=== PATIENT | female | born 1980 | race African-American/Black ===

== ENCOUNTER 2016-02-26 17:01 | Emergency (ER) | payer MEDICAID, OTHER ==
[~2016-02-26] VITALS: Ht 165.1 cm; Wt 100.0 kg
[~2016-02-26 17:01] MED LIST: ASPI81TA82 PO; ATOR20TA42 PO; CLOP75 PO; DOCU1CAP39 PO; GABA600T PO; METO25 PO; MIRTA15 PO; NIFE1TAB85 PO
[2016-02-26 17:03] VITALS: BP 183/115; PULSE 100; RESP 12; TEMP 98; O2SAT 99
[2016-06-10] MEDS ORDERED: ATOR20TA15 PO (06:38)
[2016-06-10] MEDS ORDERED: METO25TA3 PO (06:38)
[2016-06-10] MEDS ORDERED: NIFE20 PO (06:38)
[2016-06-10] MEDS ORDERED: PLAV75TA29 PO (06:38)
[2016-06-10] MEDS ORDERED: COLA100C3 PO (06:38)
[2016-06-10] MEDS ORDERED: GABA600T PO (06:38)
[2016-06-10] MEDS ORDERED: ASPI81TA81 PO (06:38)
[2016-06-10] MEDS ORDERED: PERC10TA27 PO (07:19)
[2016-06-10] MEDS ORDERED: MIRTA15 PO (07:19)
[2016-07-14] MEDS ORDERED: HYDR-3288 PO (11:57)
== END 2016-02-26 22:22 | disposition left against medical advice (07) ==
LOC: NED 17:01
DX: R51 Headache (principal)
CPT/HCPCS: 99281

== ENCOUNTER 2016-02-27 07:47 | Emergency (ER) | payer MEDICAID ==
[~2016-02-27] VITALS: Ht 165.1 cm; Wt 95.5 kg
[2016-02-27 07:49] VITALS: BP 147/90; PULSE 92; RESP 18; TEMP 98.4; O2SAT 99
[2016-06-10] MEDS ORDERED: GABA600T PO (06:38)
[2016-06-10] MEDS ORDERED: NIFE20 PO (06:38)
[2016-06-10] MEDS ORDERED: ATOR20TA15 PO (06:38)
[2016-06-10] MEDS ORDERED: METO25TA3 PO (06:38)
[2016-06-10] MEDS ORDERED: PLAV75TA29 PO (06:38)
[2016-06-10] MEDS ORDERED: ASPI81TA81 PO (06:38)
[2016-06-10] MEDS ORDERED: COLA100C3 PO (06:38)
[2016-06-10] MEDS ORDERED: PERC10TA27 PO (07:19)
[2016-06-10] MEDS ORDERED: MIRTA15 PO (07:19)
[2016-07-14] MEDS ORDERED: HYDR-3288 PO (11:57)
== END 2016-02-27 09:00 | disposition left against medical advice (07) ==
LOC: NED 07:47
DX: R51 Headache (principal)
CPT/HCPCS: 99281

== ENCOUNTER 2016-04-01 15:21 | Emergency (ER) | payer SELFPAY ==
[~2016-04-01] VITALS: Ht 165.1 cm; Wt 100.0 kg
[2016-04-01 15:24] VITALS: BP 162/85; PULSE 83; RESP 14; TEMP 98.4; O2SAT 100
[2016-06-10] MEDS ORDERED: ATOR20TA15 PO (06:38)
[2016-06-10] MEDS ORDERED: PLAV75TA29 PO (06:38)
[2016-06-10] MEDS ORDERED: COLA100C3 PO (06:38)
[2016-06-10] MEDS ORDERED: METO25TA3 PO (06:38)
[2016-06-10] MEDS ORDERED: NIFE20 PO (06:38)
[2016-06-10] MEDS ORDERED: ASPI81TA81 PO (06:38)
[2016-06-10] MEDS ORDERED: GABA600T PO (06:38)
[2016-06-10] MEDS ORDERED: MIRTA15 PO (07:19)
[2016-06-10] MEDS ORDERED: PERC10TA27 PO (07:19)
[2016-07-14] MEDS ORDERED: HYDR-3288 PO (11:57)
== END 2016-04-01 16:57 | disposition left against medical advice (07) ==
LOC: NETRI 15:21
DX: R60.9 Edema, unspecified (principal)
CPT/HCPCS: 99281

== ENCOUNTER 2016-05-13 07:49 | Emergency (ER) | payer OTHER ==
[~2016-05-13] VITALS: Ht 165.1 cm; Wt 100.0 kg
[2016-05-13 07:52] VITALS: BP 153/89; PULSE 76; RESP 15; TEMP 98.1; O2SAT 98
--- NOTE | 2016-05-13 11:17 | PD ---
HPI Chief Complaint: Pain: Acute or Chronic Time Seen by Provider: 09:17 Travel History International Travel<30 days: No Contact w/Intl Traveler<30days: No Traveled to known affect area: No History of Present Illness HPI The patient was seen and examined in the presence of the nurse. This patient has known peripheral vascular disease. She has chronic bilateral leg pain. She says that her right leg is hurting worse for the last couple of days. There is no injury. She was supposed to follow up with vascular surgeon Dr. Sampson as an outpatient but she never followed up. He describes a rather diffuse leg pain. Severity is moderate. Chronic pain but the duration of the worsening 2 days. No alleviating factors. PFSH Past Medical History Hx Anticoagulant Therapy: Yes Arthritis: No Asthma: No Autoimmune Disease: No Anxiety: Yes Depression: No Heart Rhythm Problems: No Cancer: No Cardiovascular Problems: Yes (STENTS) High Cholesterol: No Chemotherapy: No Chest Pain: Yes (Chest pain due to anxiety ) Congestive Heart Failure: No COPD: No Cerebrovascular Accident: No Diabetes: No Diminished Hearing: No Endocrine: No Gastrointestinal Disorders: No GERD: No Genitourinary: No Headaches: No Hiatal Hernia: No Hypertension: Yes Immune Disorder: No Implanted Vascular Access Dvce: Yes Kidney Stones: No Musculoskeletal: No Neurologic: No Psychiatric: No Reproductive: No Respiratory: No Immunizations Current: Yes Migraines: No Radiation Therapy: No Renal Failure: No Seizures: No Sickle Cell Disease: No Sleep Apnea: No Thyroid Disease: No Triglycerides - High: Yes Ulcer: No Tetanus Vaccination: < 5 Years ?: Not : 5 Para: 4 Miscarriage: 1 : 0 Ovarian Cysts: Yes Tubal Ligation: Yes Past Surgical History Abdominal Surgery: Yes AICD: No Arteriovenous Shunt: No Body Medical Devices: Stent to BLE Cardiac Surgery: No Section: Yes (X 4) Ear Surgery: No Endocrine Surgery: No Eye Surgery: No Genitourinary Surgery: No Gynecologic Surgery: Yes (C SECTION X 4) Insulin Pump: No Joint Replacement: No Neurologic Surgery: No Oral Surgery: No Pacemaker: No Thoracic Surgery: No Other Surgery: Yes (STENTS BILAT LEGS) Social History Alcohol Use: No Tobacco Use: No Substance Use: No Allergies-Medications (Allergen,Severity, Reaction): Coded Allergies: No Known Allergies (Unverified , 05/13/16) Reported Meds & Prescriptions Reported Meds & Active Scripts Active Gabapentin 600 Mg Tab 600 Mg PO TID Colace 100 Mg Cap (Docusate Sodium) 100 Mg Cap 100 Mg PO BID Mirtazapine 15 Mg Tab 15 Mg PO HS Metoprolol Tartrate 25 mg (Metoprolol Tartrate) 25 Mg Tab 25 Mg PO Q12HR Plavix (Clopidogrel Bisulfate) 75 Mg Tab 75 Mg PO DAILY Lipitor 20 Mg Tab (Atorvastatin) 20 Mg Tab 20 Mg PO HS Nifedipine Er (Nifedipine) 30 Mg Tabcr 30 Mg PO DAILY Reported Aspir-81 (Aspirin) 81 Mg Tab 81 Mg PO DAILY Review of Systems General / Constitutional: No: Fever Eyes: No: Visual changes HENT: No: Headaches Cardiovascular: No: Chest Pain or Discomfort Respiratory: No: Shortness of Breath Gastrointestinal: No: Abdominal Pain Genitourinary: No: Dysuria Musculoskeletal: Positive: Myalgias, Arthralgias, Pain Skin: No Rash Neurologic: No: Weakness Psychiatric: No: Depression Endocrine: No: Polydipsia Hematologic/Lymphatic: No: Easy Bruising Physical Exam Narrative GENERAL: Well-nourished, well-developed patient with right leg pain. SKIN: Warm and dry. HEAD: Atraumatic. Normocephalic. EYES: Pupils equal and round. No scleral icterus. No injection or drainage. ENT: No nasal bleeding or discharge. Mucous membranes pink and moist. NECK: Trachea midline. No JVD. CARDIOVASCULAR: Regular rate and rhythm. No murmur appreciated. RESPIRATORY: No accessory muscle use. Clear to auscultation. Breath sounds equal bilaterally. GASTROINTESTINAL: Abdomen soft, non-tender, nondistended. Hepatic and splenic margins not palpable. MUSCULOSKELETAL: Has right foot transmetatarsal amputation. No clubbing. No cyanosis. No edema. Feet are symmetric in temperature. No obvious ischemic changes on exam. I expect her to have difficult to palpate pedal pulses. I cannot palpate them. The nurse was able to Doppler a dorsalis pedis pulse however. NEUROLOGICAL: Awake and alert. No obvious cranial nerve deficits. Motor grossly within normal limits. Normal speech. PSYCHIATRIC: Appropriate mood and affect; insight and judgment normal. Data Data Last Documented VS Vital Signs Date Time Temp Pulse Resp B/P Pulse Ox O2 Delivery O2 Flow Rate FiO2 05/13/16 07:52 98.1 76 15 153/89 98 Orders Oxycodone-Acetamin 5-325 Mg (Percocet (05/13/16 11:45) MDM Medical Decision Making Medical Screen Exam Complete: Yes Emergency Medical Condition: Yes Medical Record Reviewed: Yes Differential Diagnosis Arterial ischemia, chronic pain, embolic disease Narrative Course I have reviewed the patient's electronic medical record. Patient had a CTA of the aorta with runoff 4 months ago. I have reviewed that. The disposition of her last visit then was that she might need outpatient surgery but it doesn't seem like she follows up. She says that she lost her insurance and that's why. I reviewed the case with Dr. Sampson who is familiar with this patient.. He is going to come down to the emergency room and talked to and examined the patient and determine a plan of action. He has spoken with and examined the patient. Nothing emergent going on He will see the patient in his office for follow-up Diagnosis Primary Impression: Chronic leg pain Qualified Code: M79.604 - Chronic pain of right lower extremity Additional Impression: Peripheral vascular disease Additional Instructions: The patient was advised to follow up with Dr. Sampson at [id number], call for follow-up appointment Med/Other Pt SpecificInfo: Other Disposition: 01 DISCHARGE HOME Condition: Stable Jono Torrez MD May 13, 2016 11:17
[2016-05-13] MEDS ORDERED: oxyCODONE/ACETAMINOPHEN 5 MG/325 MG TAB PO ONE (11:45)
[2016-05-13] MEDS ORDERED: PERC5TAB12 PO (12:41)
[2016-06-10] MEDS ORDERED: PLAV75TA29 PO (06:38)
[2016-06-10] MEDS ORDERED: ASPI81TA81 PO (06:38)
[2016-06-10] MEDS ORDERED: NIFE20 PO (06:38)
[2016-06-10] MEDS ORDERED: COLA100C3 PO (06:38)
[2016-06-10] MEDS ORDERED: ATOR20TA15 PO (06:38)
[2016-06-10] MEDS ORDERED: GABA600T PO (06:38)
[2016-06-10] MEDS ORDERED: METO25TA3 PO (06:38)
[2016-06-10] MEDS ORDERED: PERC10TA27 PO (07:19)
[2016-06-10] MEDS ORDERED: MIRTA15 PO (07:19)
[2016-07-14] MEDS ORDERED: HYDR-3288 PO (11:57)
== END 2016-05-13 12:56 | disposition home or self-care (01) ==
LOC: NEPC 07:49
DX: M79.604 Pain in right leg (principal); G89.29 Other chronic pain; I73.9 Peripheral vascular disease, unspecified; I10 Essential (primary) hypertension; Z79.01 Long term (current) use of anticoagulants
CPT/HCPCS: 99283

== ENCOUNTER → 2016-06-05 | Outpatient (CLI) | payer OTHER ==
[~2016-06-05] MED LIST changes: +ASPI81TA81 PO; +ATOR20TA15 PO; +COLA100C3 PO; +DOCU100C PO; +HYDR-2376 PO; +HYDR-3288 PO; +HYDR-3366 PO; +METO25TA3 PO; +NIFE20 PO; +OXYC1TAB36 PO; +PERC10TA27 PO; +PERC5TAB12 PO; +PLAV75TA29 PO
[2016-06-05 12:09] LABS: AUTOMATED NEUTROPHIL # 5.9 TH/MM3 (1.8-7.7); BASOPHIL # 0.1 TH/MM3 (0-0.2); BASOPHIL % 0.9 % (0.0-2.0); EOSINOPHIL # 0.1 TH/MM3 (0-0.4); EOSINOPHIL % 0.5 % (0.0-4.0); HEMATOCRIT 38.5 % (35.0-46.0); HEMO FLAGS DIFF FINAL; LYMPH % 33.7 % (9.0-44.0); LYMPHOCYTE # 3.5 TH/MM3 (1.0-4.8); MEAN CELL VOLUME 87.2 FL (80.0-100.0); MEAN CORPUSCULAR HEMOGLOBIN 29.7 PG (27.0-34.0); MEAN CORPUSCULAR HGB CONC 34.1 % (32.0-36.0); MONO % 7.5 % (0.0-8.0); NEUT % 57.4 % (16.0-70.0); PLATELET COUNT 273 TH/MM3 (150-450); RED BLOOD COUNT 4.41 MIL/MM3 (4.00-5.30); RED CELL DISTRIBUTION WIDTH 15.5 % (11.6-17.2); WHITE BLOOD COUNT 10.3 TH/MM3 (4.0-11.0)
[2016-06-05 12:11] LABS: PROTHROMBIN TIME - PATIENT 11.2 SEC (9.8-11.6)
--- NOTE | 2016-06-05 12:20 | RADRPT ---
EXAM DATE/TIME: 06/05/2016 11:56 [facility] COMPARISON: No previous studies available for comparison. INDICATIONS : Pre op angioplasty. MEDICAL HISTORY : Hypertension. SURGICAL HISTORY : None. ENCOUNTER: Initial ACUITY: 1 day PAIN SCORE: 0/10 LOCATION: Bilateral chest FINDINGS: PA and lateral views of the chest demonstrate the lungs to be symmetrically aerated without evidence of mass, infiltrate or effusion. The cardiomediastinal contours are unremarkable. Osseous structure s are intact. CONCLUSION: No acute cardiopulmonary disease. Lenard Ruiz MD on June 05, 2016 at 12:18 Board Certified Radiologist. This report was verified electronically.
[2016-06-05 12:35] LABS: BICARBONATE 24.2 MEQ/L (21.0-32.0); POTASSIUM 3.4 MEQ/L (3.5-5.1)
--- NOTE | 2016-06-05 20:16 | EKG ---
Date Performed: 06/05/2016 Time Performed: 11:42:18 PTAGE: 35 years EKG: Sinus rhythm MODERATE VOLTAGE CRITERIA FOR LVH, CONSIDER NORMAL VARIANT BORDERLINE ECG PREVIOUS TRACING : 07/05/2015 21.13 Compared to prior tracing no significant change DOCTOR: Deshawn Lemons Interpretating Date/Time 06/05/2016 20:15:25
== END ==
LOC: CPRE 11:07
PROVIDERS: ATTEND Surgery
DX: Z01.812 Encounter for preprocedural laboratory examination (principal); Z01.810 Encounter for preprocedural cardiovascular examination; Z01.811 Encounter for preprocedural respiratory examination; I73.9 Peripheral vascular disease, unspecified; R94.31 Abnormal electrocardiogram [ECG] [EKG]
CPT/HCPCS: 36415; 71020; 80048; 85025; 85610; 93005

== ENCOUNTER → 2016-06-10 | Day surgery (SDC) | payer OTHER ==
[~2016-06-10] VITALS: Ht 165.1 cm; Wt 94.2 kg
[~2016-06-10] MED LIST changes: +*morphine SULFATE 8 MG/ML PERIprocedure ONLY ONE; +BUPIVACAINE/EPINEPHRINE 0.5% PF 30 ML VIAL ONE; +CHLORHEXIDINE GLUCONATE 2 % 1 PACK (2 CLOTHS) TOPICAL PRN; +CLOPIDOGREL 75 MG TAB PO ONE; +DEXAMETHASONE SOD PHOS 4 MG/ML VIAL ONE; +DO NOT ADM ANY ANTICOAGULANT DRUGS PRN; +FAMOTIDINE 20 MG/2 ML VIAL ONE; +HEPARIN SODIUM - IV 10,000 UNITS/10 ML VIAL ONE; +INSULIN HUMAN REGULAR 1,000 UNITS/10 ML VIAL SQ PRN; +IOHEXOL 300 MG/ML 50 ML BTL (for RAD DIAG) OTHER ONE; +LACTATED RINGER'S 1000 ML INJ 1,000 ML IV ONE; +LACTATED RINGER'S 1000 ML IV PRN; +METOPROLOL TARTRATE 25 MG TAB PO PRN; +MIDAZOLAM HCL 2 MG/2 ML VIAL ONE; +NEOSTIGMINE 3 MG/3 ML SYR IV ONE; +ONDANSETRON HCL 4 MG/2 ML VIAL IV PUSH ONE; -PERC5TAB12 PO; +PHENYLEPH/NS 1000 MCG/10 ML SYR IV ONE; +POVIDONE IODINE 5% (ANTISEPSIS KIT) 4 APPLICATIONS EACH NARE PRN; +PROPOFOL 200 MG/20 ML AMP IV ONE; +SODIUM CHLORID 0.9% 500 ML IV PRN; +ceFAZolin 2 GM PREMIX 50 ML ONE; +ePHEDrine/NS 25 MG/5 ML SYR IV ONE; +fentaNYL CITRATE 250 MCG/5 ML AMP ONE; +oxyCODONE/ACETAMINOPHEN 10 MG/325 MG TAB ONE; +oxyCODONE/ACETAMINOPHEN 10 MG/325 MG TAB PO ONE
[2016-06-10 06:44] VITALS: BP 153/93; PULSE 80; RESP 22; TEMP 97.5; O2SAT 95
--- NOTE | 2016-06-10 08:08 | PD.VS.PN ---
Pre-operative Note Pre-operative diagnosis: B LE leg pain, PAD Planned procedure: Aortogram w/ B iliac WASHING MACHINE STRIPER/stent Interval History: Pt notes occasional chills but nothing new. Otherwise only complaint is leg pain. Labs: Hct 38 plt 273 cr 0.6 INR 1.0 Blood: T&S Imaging: CTA reviewed Orders: NPO Ancef 2g IV OCTOR Post-operative destination: PACU Operative site marked: No (bilateral groin access) Consent: Informed consent has been obtained from Roberto Fernandez. I have explained the procedure in detail and discussed the risks, benefits, and potential complications. All questions have been answered. Patient contact information: Aunt ([phone]) Benito Wheeler MD Jun 10, 2016 08:08
--- NOTE | 2016-06-10 09:55 | HHI.PR ---
Immediate Post Op Note Procedure Date: Jun 10, 2016 Pre Op Diagnosis: PAD, aorto-iliac occlusive disease Post Op Diagnosis: same Surgeon: Benito Wheeler Director Regulatory Compliance(s): none Procedure: 1. U/S guided access to B FLAME CUTTING SUPERVISOR 2. L EIA RAW HIDE TRIMMER/stent (7x60) 3. Aortogram Findings: 1. Successful RAW HIDE TRIMMER/stent of L EIA 2. Unable to cross R EIA. Will need FLAME CUTTING SUPERVISOR TEA and retrograde attempt if symptoms warrant Complications: none Specimen(s) removed: none Estimated blood loss: 10 mL Anesthesia: General Drains: None Patient to: PACU Patient Condition: Good Implant/Devices: SEE IMPLANT LOG (if applicable) Date/Time of Procedure: SEE SURGICAL CARE RECORD Benito Wheeler MD Jun 10, 2016 09:54
[2016-06-10 11:40] VITALS: BP 108/64; PULSE 66; RESP 16; TEMP 97.8; O2SAT 98
--- NOTE | 2016-06-13 09:53 | MP ---
cc: JACLYN WHEELER MD DATE OF SURGERY 06/10/16 PREOPERATIVE DIAGNOSIS Aortic occlusive disease POSTOPERATIVE DIAGNOSIS Aortic occlusive disease PROCEDURE 1. Ultrasound guide access to bilateral common femoral arteries. 2. Left external iliac stent with 7 x 60 self expanding stent 3. Attempted recanalization of right external iliac artery. ATTENDING SURGEON Lisa Wheeler MD ANESTHESIA General. INDICATIONS A 35 year old lady who had a previous left iliac stent and left groin reconstruction. She has bilateral lower extremity symptoms and taken to the operating room for angiographic evaluation and potential treatment. There is no prior catheterization or imaging available for my review. PROCEDURE IN DETAIL Informed consent was obtained from the patient and she was taken to the operating room and placed supine on the operating table. Appropriate time out was taken to ensure the patient, operative site and planned procedure. Administration of 2 grams of Ancef was initiated prior to skin incision and will be discontinued after a single preoperative does. Everyone in the room agreed with the time out and we proceeded. Under ultrasound guidance, the right distal common femoral artery was accessed with a 21 gauge micropuncture needle. This was exchanged using Seldinger technique through the micropuncture sheath through which a 0.025 Glidewire was introduced. The micropuncture sheath was exchanged for a 5 [place] sheath and multiple attempts were made to recannulate the external iliac artery from the right groin but these were unsuccessful. The 5 [place]olese sheath was flushed. Under ultrasound guidance, the left common femoral artery was accessed with a 21 gauge micropuncture needle. This was exchanged using Seldinger technique through micropuncture sheath for a 0.0025 Glidewire was introduced. The micropuncture sheath was exchanged for a 5 [place]olese sheath and a Glidewire was advanced and a left lower extremity angiogram was obtained. This showed a high-grade left external iliac artery stenosis that was treated with 6 mm balloon. At the completion angiogram showed a dissection that appeared significant and this was treated with a 7 x 60 self-expanding stent. This was post dilated to 6 mm. The angiogram showed excellent result without any recoil or extravasation. The VCF catheter was then advanced with a glide and used to navigate down to the right common femoral artery and multiple attempts were made to recannulize the right external iliac artery with the glide and SUBSCRIPTION CREW LEADER wire, but these were unsuccessful. The wire, catheter and sheath were removed. The wound was closed with angioseal. The right sheath was removed and pressure was held for hemostasis. There were no complications. I was present and scrubbed for the entire procedure. MD ERINN Neil/ /10:53 AM /9:20 AM MTDLauren
== END | disposition home or self-care (01) ==
LOC: HSDC 05:47
PROVIDERS: ATTEND Surgery
DX: I73.9 Peripheral vascular disease, unspecified (principal); I74.09 Other arterial embolism and thrombosis of abdominal aorta; I70.92 Chronic total occlusion of artery of the extremities; I10 Essential (primary) hypertension
CPT/HCPCS: 00880; 37221; 75710; 76937; 86850; 86900; 86901; 86920; 86922; C1725; C1769; C1876; J0690; J1100; J1644; J2250; J2270; J2370; J2405; J2710; J3010; J7120; Q9967

== ENCOUNTER 2016-07-13 20:17 | Emergency (ER) | payer OTHER ==
[~2016-07-13] VITALS: Ht 167.6 cm; Wt 88.0 kg
[~2016-07-13 20:17] MED LIST changes: -*morphine SULFATE 8 MG/ML PERIprocedure ONLY ONE; -ASPI81TA82 PO; -ATOR20TA42 PO; -BUPIVACAINE/EPINEPHRINE 0.5% PF 30 ML VIAL ONE; -CHLORHEXIDINE GLUCONATE 2 % 1 PACK (2 CLOTHS) TOPICAL PRN; -CLOP75 PO; -CLOPIDOGREL 75 MG TAB PO ONE; -DEXAMETHASONE SOD PHOS 4 MG/ML VIAL ONE; -DO NOT ADM ANY ANTICOAGULANT DRUGS PRN; -DOCU100C PO; -DOCU1CAP39 PO; -FAMOTIDINE 20 MG/2 ML VIAL ONE; -HEPARIN SODIUM - IV 10,000 UNITS/10 ML VIAL ONE; -HYDR-2376 PO; -HYDR-3288 PO; -HYDR-3366 PO; -INSULIN HUMAN REGULAR 1,000 UNITS/10 ML VIAL SQ PRN; -IOHEXOL 300 MG/ML 50 ML BTL (for RAD DIAG) OTHER ONE; -LACTATED RINGER'S 1000 ML INJ 1,000 ML IV ONE; -LACTATED RINGER'S 1000 ML IV PRN; -METO25 PO; -METOPROLOL TARTRATE 25 MG TAB PO PRN; -MIDAZOLAM HCL 2 MG/2 ML VIAL ONE; -NEOSTIGMINE 3 MG/3 ML SYR IV ONE; -NIFE1TAB85 PO; -ONDANSETRON HCL 4 MG/2 ML VIAL IV PUSH ONE; -OXYC1TAB36 PO; -PHENYLEPH/NS 1000 MCG/10 ML SYR IV ONE; -POVIDONE IODINE 5% (ANTISEPSIS KIT) 4 APPLICATIONS EACH NARE PRN; -PROPOFOL 200 MG/20 ML AMP IV ONE; -SODIUM CHLORID 0.9% 500 ML IV PRN; -ceFAZolin 2 GM PREMIX 50 ML ONE; -ePHEDrine/NS 25 MG/5 ML SYR IV ONE; -fentaNYL CITRATE 250 MCG/5 ML AMP ONE; -oxyCODONE/ACETAMINOPHEN 10 MG/325 MG TAB ONE; -oxyCODONE/ACETAMINOPHEN 10 MG/325 MG TAB PO ONE
[2016-07-13 20:21] VITALS: BP 151/100; PULSE 88; RESP 16; TEMP 98.1; O2SAT 99
[2016-07-13] MEDS ORDERED: DOCU100C PO (20:37)
--- NOTE | 2016-07-13 20:37 | PD ---
HPI Chief Complaint: Injury Time Seen by Provider: 20:37 Travel History International Travel<30 days: No Contact w/Intl Traveler<30days: No Traveled to known affect area: No History of Present Illness HPI 35-year-old female into the emergency room with history of right leg pain and numbness. Patient says that she tried to stand up 2 hours ago and felt like leg was giving away. Since then it has been hurting a lot as well. She has been diagnosed with peripheral arterial disease and had a stent put in her left iliofemoral artery about 3 weeks ago and is supposed to get the same procedure done on her right leg. Dr. Wheeler had done that surgery. She does not have an appointment set up with him. Meanwhile she continues to smoke and lives in an environment with heavy smokers. Vital signs were stable in triage. She she is able to move her leg. PFSH Past Medical History Narrative Medical List of her past medical, surgical, social and family history reviewed from the nursing note. Hx Anticoagulant Therapy: Yes Arthritis: No Asthma: No Autoimmune Disease: No Anxiety: Yes Depression: No Heart Rhythm Problems: No Cancer: No Cardiovascular Problems: Yes (STENTS X 2) High Cholesterol: No Chemotherapy: No Chest Pain: Yes (Chest pain due to anxiety ) Congestive Heart Failure: No COPD: No Cerebrovascular Accident: No Diabetes: No Diminished Hearing: No Endocrine: No Gastrointestinal Disorders: No GERD: No Genitourinary: No Headaches: No Hiatal Hernia: No Hypertension: Yes Immune Disorder: No Implanted Vascular Access Dvce: Yes Kidney Stones: No Musculoskeletal: Yes (BLE PAIN) Neurologic: No Reproductive: No Respiratory: No Immunizations Current: Yes Migraines: No Radiation Therapy: No Renal Failure: No Seizures: No Sickle Cell Disease: No Sleep Apnea: No Thyroid Disease: No Triglycerides - High: Yes Ulcer: No Tetanus Vaccination: < 5 Years Influenza Vaccination: No ?: Not LMP: 07/11/2016 : 5 Para: 4 Miscarriage: 1 : 0 Ovarian Cysts: Yes Tubal Ligation: Yes Past Surgical History Abdominal Surgery: No AICD: No Arteriovenous Shunt: No Body Medical Devices: Stent to BLE, CARDIAC STENTS X 2 Cardiac Surgery: Yes (STENTS X 2) Section: Yes (X 4) Ear Surgery: No Endocrine Surgery: No Eye Surgery: No Genitourinary Surgery: No Gynecologic Surgery: Yes (C SECTION X 4) Insulin Pump: No Joint Replacement: No Neurologic Surgery: No Oral Surgery: No Pacemaker: No Thoracic Surgery: No Other Surgery: Yes (STENTS BILAT LEGS) Social History Alcohol Use: No Tobacco Use: No Substance Use: No (QUESTIONABLE) Allergies-Medications (Allergen,Severity, Reaction): Coded Allergies: No Known Allergies (Unverified , 07/16/16) Comments No known drug allergies. Reported Meds & Prescriptions Reported Meds & Active Scripts Active Percocet (Oxycodone-Acetaminophen) 10-325 mg Tab 1 Tab PO Q6H PRN [place] (Hydrocodone-Acetaminophen) 7.5-325 mg Tab 1 Tab PO Q6H PRN Hydrocodone-Acetaminophen 7.5-300 Mg Tab 1 Tab PO Q6H PRN Reported Docusate Sodium 100 Mg Cap 100 Mg PO BID Mirtazapine 15 Mg Tab 15 Mg PO HS Nifedipine 20 Mg Cap 30 Mg PO DAILY Metoprolol Tartrate 25 Mg Tab 25 Mg PO BID Gabapentin 600 Mg Tab 600 Mg PO TID Plavix (Clopidogrel Bisulfate) 75 Mg Tab 75 Mg PO DAILY Atorvastatin (Atorvastatin Calcium) 20 Mg Tab 20 Mg PO HS Aspir-81 (Aspirin) 81 Mg Tabdr 1 Tab PO DAILY Narrative Medication List of her home medications reviewed from the nursing note. Review of Systems Except as stated in HPI: all other systems reviewed are Neg Physical Exam Narrative GENERAL: Awake, alert, mild distress SKIN: Focused skin assessment warm/dry. HEAD: Atraumatic. Normocephalic. EYES: Pupils equal and round. No scleral icterus. No injection or drainage. ENT: No nasal bleeding or discharge. Mucous membranes pink and moist. NECK: Trachea midline. No JVD. CARDIOVASCULAR: Regular rate and rhythm. No murmur appreciated. RESPIRATORY: No accessory muscle use. Clear to auscultation. Breath sounds equal bilaterally. GASTROINTESTINAL: Abdomen soft, non-tender, nondistended. Hepatic and splenic margins not palpable. MUSCULOSKELETAL: No obvious deformities. No clubbing. No cyanosis. No edema. Right DP had good dopplerable pulses NEUROLOGICAL: Awake and alert. No obvious cranial nerve deficits. Motor grossly within normal limits. Normal speech. Good range of motion of the right leg. PSYCHIATRIC: Appropriate mood and affect; insight and judgment normal. Data Data Last Documented VS Vital Signs Date Time Temp Pulse Resp B/P Pulse Ox O2 Delivery O2 Flow Rate FiO2 07/13/16 20:38 92 18 144/104 97 Room Air 07/13/16 20:21 98.1 Orders Oxycodone-Acetamin 5-325 Mg (Percocet (07/13/16 21:15) MDM Medical Decision Making Medical Screen Exam Complete: Yes Emergency Medical Condition: Yes Medical Record Reviewed: Yes Differential Diagnosis Claudication syndrome, peripheral vascular disease Narrative Course 9:13 PM patient requested pain medication and I gave her Percocet here. I'll let her go home with pain medication prescription for next 2 days and I have recommended her strongly to call Friday and make an appointment. She has also been strictly instructed from nicotine abstinence. Patient will be discharged home. Procedures EKG Prior to Arrival: No Diagnosis Primary Impression: Peripheral arterial disease Additional Impressions: acute on chronic leg pain leg claudication syndrome Needs smoking cessation education nicotine abstinance Referrals: Benito Wheeler MD 2 days Additional Instructions: Please return to the ER if the condition worsens or any other new concerns. Continue taking all your medications especially Plavix like you have been prescribed. Call the vascular surgeon who is name and number been provided to you since he did your other leg procedure. Take the medication as per the prescription direction. Do not drive or operate heavy machinery while on that medication since it'll make you groggy. Med/Other Pt SpecificInfo: Prescription(s) given Scripts Hydrocodone-Acetaminophen ([place])7.5-325 mg Tab1 Tab PO Q6H PRN (PAIN) #8 TAB Ref 0 Prov:Tae Mirza MD 07/14/16 Hydrocodone-Acetaminophen 7.5-300 Mg Tab1 Tab PO Q6H PRN (PAIN) #8 TAB Ref 0 Prov:Rj Serrano MD 07/13/16 Disposition: 01 DISCHARGE HOME Condition: Stable Rj Serrano MD July 13, 2016 20:37
[2016-07-13 20:38] VITALS: BP 144/104; PULSE 92; RESP 18; O2SAT 97
[2016-07-13] MEDS ORDERED: oxyCODONE/ACETAMINOPHEN 5 MG/325 MG TAB PO ONE (21:15)
[2016-07-13] MEDS ORDERED: HYDR-2376 PO (21:16)
[2016-07-14] MEDS ORDERED: HYDR-3288 PO (11:57)
--- NOTE | 2016-07-14 11:57 | PD ---
Physical Exam Narrative Patient was given prescription, not available at local pharmacy. Prescription requested to be change. Data Data Last Documented VS Vital Signs Date Time Temp Pulse Resp B/P Pulse Ox O2 Delivery O2 Flow Rate FiO2 07/13/16 20:38 92 18 144/104 97 Room Air 07/13/16 20:21 98.1 Orders Oxycodone-Acetamin 5-325 Mg (Percocet (07/13/16 21:15) MDM Supervised Visit with DONNA: Yes Diagnosis Primary Impression: Peripheral arterial disease Additional Impressions: Needs smoking cessation education acute on chronic leg pain leg claudication syndrome nicotine abstinance Referrals: Benito Wheeler MD 2 days Patient Instructions: General Instructions, Narcotic given in the ED, How to Stop Smoking (ED), Cigarette Smoking and Your Health (GEN), Peripheral Artery Disease (ED), Leg Pain (ED) Departure Forms: Tests/Procedures Additional Instruction: Please return to the ER if the condition worsens or any other new concerns. Continue taking all your medications especially Plavix like you have been prescribed. Call the vascular surgeon who is name and number been provided to you since he did your other leg procedure. Take the medication as per the prescription direction. Do not drive or operate heavy machinery while on that medication since it'll make you groggy. Scripts Hydrocodone-Acetaminophen ([place])7.5-325 mg Tab1 Tab PO Q6H PRN (PAIN) #8 TAB Ref 0 Prov:Tae Mirza MD 07/14/16 Hydrocodone-Acetaminophen 7.5-300 Mg Tab1 Tab PO Q6H PRN (PAIN) #8 TAB Ref 0 Prov:Rj Serrano MD 07/13/16 Disposition: 01 DISCHARGE HOME Condition: Stable Tae Mirza MD July 14, 2016 11:57
== END 2016-07-13 21:46 | disposition home or self-care (01) ==
LOC: NEPE 20:17
DX: I73.9 Peripheral vascular disease, unspecified (principal); M79.604 Pain in right leg; G89.29 Other chronic pain; R20.0 Anesthesia of skin; I10 Essential (primary) hypertension; E78.1 Pure hyperglyceridemia; Z72.0 Tobacco use; Z79.01 Long term (current) use of anticoagulants; Z86.59 Personal history of other mental and behavioral disorders; Z86.79 Personal history of other diseases of the circulatory system; Z87.39 Personal history of other diseases of the musculoskeletal system and connective tissue
CPT/HCPCS: 99283

== ENCOUNTER 2016-07-16 13:48 | Emergency (ER) | payer OTHER ==
[~2016-07-16] VITALS: Ht 165.1 cm; Wt 95.0 kg
[~2016-07-16 13:48] MED LIST changes: -COLA100C3 PO; +DOCU100C PO; +HYDR-2376 PO; +HYDR-3288 PO; -PERC10TA27 PO
[2016-07-16 13:50] VITALS: BP 155/96; PULSE 98; RESP 14; TEMP 98.2; O2SAT 99
--- NOTE | 2016-07-16 14:05 | PD ---
Physical Exam Date Seen by Provider: July 16, 2016 Time Seen by Provider: 14:03 Narrative 36 yo female here for evaluation of right leg pain. History of PAD. Sent here by vascular surgeon Dr Dennison. Here for evaluation of pain to the right leg. She is supposed to have some sort of surgical intervention. No chest pain or SOB. no other medical history. Pain is 8/10. No changes in coloration. Vitals sign stable. Patient awaiting bed placement. Data Data Last Documented VS Vital Signs Date Time Temp Pulse Resp B/P Pulse Ox O2 Delivery O2 Flow Rate FiO2 07/16/16 13:50 98.2 98 14 155/96 99 MDM Medical Record Reviewed: Yes Supervised Visit with DONNA: No Trip Max July 16, 2016 14:05
[2016-07-16] MEDS ORDERED: PERC10TA27 PO (21:20)
== END 2016-07-16 15:06 | disposition left against medical advice (07) ==
LOC: NED 13:48
DX: M79.604 Pain in right leg (principal); Z86.79 Personal history of other diseases of the circulatory system; Z53.29 Procedure and treatment not carried out because of patient's decision for other reasons
CPT/HCPCS: 99281

== ENCOUNTER 2016-07-16 17:49 | Emergency (ER) | payer OTHER ==
[~2016-07-16] VITALS: Ht 165.1 cm; Wt 93.0 kg
[2016-07-16 17:52] VITALS: BP 143/78; PULSE 80; RESP 14; TEMP 98.2; O2SAT 98
--- NOTE | 2016-07-16 18:04 | PD ---
Physical Exam Date Seen by Provider: July 16, 2016 Time Seen by Provider: 18:03 Narrative 36 yo female here for her 2nd time for evaluation of right leg pain. history of PAD. patient left AMA. Could not see her doctor. Her Surgeon told her to come here. So she is here back. Pain is 8/10. Vitals sign stable. Patient awaiting bed placement. Data Data Last Documented VS Vital Signs Date Time Temp Pulse Resp B/P Pulse Ox O2 Delivery O2 Flow Rate FiO2 07/16/16 17:52 98.2 80 14 143/78 98 [facility] Medical Record Reviewed: Yes Supervised Visit with DONNA: No Trip Max July 16, 2016 18:04
--- NOTE | 2016-07-16 19:59 | PD ---
HPI Chief Complaint: Pain: Acute or Chronic Time Seen by Provider: 19:32 Travel History International Travel<30 days: No Contact w/Intl Traveler<30days: No Traveled to known affect area: No History of Present Illness HPI The patient is a 36-year-old female who presents emergency Department with right leg pain. The patient notes a one year history of bilateral lower extremity pain. The patient was seen by her primary physician, Dr. Sommers, who referred her to neurology. The patient was placed on gabapentin for neuropathy, however, was referred to vascular surgery for possible claudication. The patient was seen by her vascular surgeon, Dr. Wheeler , and subsequently when arteriogram of the lower extremities. The patient had an EZIO right lower extremity that was 0.8 with minimal external iliac involvement, but had distal positive pulses. The patient underwent a procedure by Dr. Wheeler for the left lower extremity 3 weeks ago. The patient continues to have pain in the right lower extremity from the knee inferiorly, burning, worse with rest and at night, slightly alleviated by walking. The patient has been taking pain medications and gabapentin, however, the pain has increased over the last 2 nights. The patient called her vascular surgeon who referred her to the emergency department. The patient does have a history tobacco use, quit smoking 3 weeks ago, however, continues to live with people who smoke heavily. She denies any numbness or tingling to the lower extremity, but does complain of burning pain from the knee inferiorly which is anteriorly and posteriorly. 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 PFSH Past Medical History Hx Anticoagulant Therapy: Yes (PLAVIX) Arthritis: No Asthma: No Autoimmune Disease: No Anxiety: Yes Depression: No Heart Rhythm Problems: No Cancer: No Cardiovascular Problems: Yes (HTN) High Cholesterol: No Chemotherapy: No Chest Pain: Yes (Chest pain due to anxiety ) Congestive Heart Failure: No COPD: No Cerebrovascular Accident: No Diabetes: No Diminished Hearing: No Endocrine: No Gastrointestinal Disorders: No GERD: No Genitourinary: No Headaches: No Hiatal Hernia: No Hypertension: Yes Immune Disorder: No Implanted Vascular Access Dvce: Yes Kidney Stones: No Musculoskeletal: Yes (BLE PAIN) Neurologic: No Reproductive: No Respiratory: No Immunizations Current: Yes Migraines: No Radiation Therapy: No Renal Failure: No Seizures: No Sickle Cell Disease: No Sleep Apnea: No Thyroid Disease: No Triglycerides - High: Yes Ulcer: No ?: Not LMP: 07/14/16 : 5 Para: 4 Miscarriage: 1 : 0 Ovarian Cysts: Yes Tubal Ligation: Yes Past Surgical History Abdominal Surgery: No AICD: No Arteriovenous Shunt: No Body Medical Devices: Stent to BLE, CARDIAC STENTS X 2 Cardiac Surgery: Yes (STENTS X 2) Section: Yes (X 4) Ear Surgery: No Endocrine Surgery: No Eye Surgery: No Genitourinary Surgery: No Gynecologic Surgery: Yes (C SECTION X 4) Insulin Pump: No Joint Replacement: No Neurologic Surgery: No Oral Surgery: No Pacemaker: No Thoracic Surgery: No Other Surgery: Yes (STENTS BILAT LEGS) Social History Alcohol Use: No Tobacco Use: No Substance Use: No (QUESTIONABLE) Allergies-Medications (Allergen,Severity, Reaction): Coded Allergies: No Known Allergies (Unverified , 07/16/16) Reported Meds & Prescriptions Reported Meds & Active Scripts Active [place] (Hydrocodone-Acetaminophen) 7.5-325 mg Tab 1 Tab PO Q6H PRN Hydrocodone-Acetaminophen 7.5-300 Mg Tab 1 Tab PO Q6H PRN Reported Docusate Sodium 100 Mg Cap 100 Mg PO BID Mirtazapine 15 Mg Tab 15 Mg PO HS Nifedipine 20 Mg Cap 30 Mg PO DAILY Metoprolol Tartrate 25 Mg Tab 25 Mg PO BID Gabapentin 600 Mg Tab 600 Mg PO TID Plavix (Clopidogrel Bisulfate) 75 Mg Tab 75 Mg PO DAILY Atorvastatin (Atorvastatin Calcium) 20 Mg Tab 20 Mg PO HS Aspir-81 (Aspirin) 81 Mg Tabdr 1 Tab PO DAILY Review of Systems Except as stated in HPI: all other systems reviewed are Neg General / Constitutional: No: Fever Cardiovascular: No: Chest Pain or Discomfort Respiratory: No: Shortness of Breath Gastrointestinal: No: Nausea, Vomiting, Abdominal Pain Musculoskeletal: Positive: Pain, No: Weakness Neurologic: Positive: Other (neuropathy), No: Paresthesia, Sensory Disturbance Physical Exam Narrative GENERAL: Awake, alert, pleasant 36-year-old female who appears her stated age and is in no acute respiratory distress. SKIN: Focused skin assessment warm/dry. HEAD: Atraumatic. Normocephalic. EYES: No injection or drainage. ENT: No nasal bleeding or discharge. Mucous membranes pink and moist. NECK: Trachea midline. No JVD. CARDIOVASCULAR: Regular rate and rhythm. No murmur appreciated. RESPIRATORY: No accessory muscle use. Clear to auscultation. Breath sounds equal bilaterally. GASTROINTESTINAL: Abdomen soft, non-tender, nondistended. MUSCULOSKELETAL: The right lower extremity has a partial right foot amputation. The patient has a Doppler pulse in the femoral, dorsalis pedis, and posterior tibialis. The right foot and leg are warm, there is no coolness noted. Capillary refill unable to be determined secondary to previous distal partial right foot amputation. NEUROLOGICAL: Awake and alert. No obvious cranial nerve deficits. Motor grossly within normal limits. Normal speech. Sensation is intact to the medial , lateral, dorsal aspect of the leg and foot. PSYCHIATRIC: Appropriate mood and affect; insight and judgment normal. Data Data Last Documented VS Vital Signs Date Time Temp Pulse Resp B/P Pulse Ox O2 Delivery O2 Flow Rate FiO2 07/16/16 20:13 76 18 142/78 99 Room Air 07/16/16 17:52 98.2 Orders Complete Blood Count With Diff (07/16/16 19:46) Comprehensive Metabolic Panel (07/16/16 19:46) Act Partial Throm Time (Ptt) (07/16/16 19:46) Prothrombin Time / Inr (Pt) (07/16/16 19:46) Morphine Inj (Morphine Inj) (07/16/16 20:00) Ondansetron Inj (Zofran Inj) (07/16/16 20:00) Sodium Chlorid 0.9% 500 Ml Inj (Ns 500 M (07/16/16 20:00) Hydromorphone Pf Inj (Dilaudid Pf Inj) (07/16/16 21:15) Labs Laboratory Tests Test 07/16/16 20:00 White Blood Count 10.4 TH/MM3 Red Blood Count 4.56 MIL/MM3 Hemoglobin 12.9 GM/DL Hematocrit 39.9 % Mean Corpuscular Volume 87.6 FL Mean Corpuscular Hemoglobin 28.3 PG Mean Corpuscular Hemoglobin 32.3 % Concent Red Cell Distribution Width 16.3 % Platelet Count 256 TH/MM3 Mean Platelet Volume 9.6 FL Neutrophils (%) (Auto) 60.7 % Lymphocytes (%) (Auto) 28.6 % Monocytes (%) (Auto) 9.6 % Eosinophils (%) (Auto) 0.5 % Basophils (%) (Auto) 0.6 % Neutrophils # (Auto) 6.3 TH/MM3 Lymphocytes # (Auto) 3.0 TH/MM3 Monocytes # (Auto) 1.0 TH/MM3 Eosinophils # (Auto) 0.0 TH/MM3 Basophils # (Auto) 0.1 TH/MM3 CBC Comment DIFF FINAL Differential Comment Prothrombin Time 11.5 SEC Prothromb Time International 1.0 RATIO Ratio Activated Partial 27.4 SEC Thromboplast Time Sodium Level 144 MEQ/L Potassium Level 3.5 MEQ/L Chloride Level 109 MEQ/L Carbon Dioxide Level 26.7 MEQ/L Anion Gap 8 MEQ/L Blood Urea Nitrogen 9 MG/DL Creatinine 0.60 MG/DL Estimat Glomerular Filtration 135 ML/MIN Rate Random Glucose 96 MG/DL Calcium Level 7.9 MG/DL Total Bilirubin 0.2 MG/DL Aspartate Amino Transf 12 U/L (AST/SGOT) Alanine Aminotransferase 24 U/L (ALT/SGPT) Alkaline Phosphatase 89 U/L Total Protein 7.4 GM/DL Albumin 3.6 GM/DL MDM Medical Decision Making Medical Screen Exam Complete: Yes Emergency Medical Condition: Yes Medical Record Reviewed: Yes Interpretation(s) Laboratory Tests Test 07/16/16 20:00 White Blood Count 10.4 TH/MM3 Red Blood Count 4.56 MIL/MM3 Hemoglobin 12.9 GM/DL Hematocrit 39.9 % Mean Corpuscular Volume 87.6 FL Mean Corpuscular Hemoglobin 28.3 PG Mean Corpuscular Hemoglobin 32.3 % Concent Red Cell Distribution Width 16.3 % Platelet Count 256 TH/MM3 Mean Platelet Volume 9.6 FL Neutrophils (%) (Auto) 60.7 % Lymphocytes (%) (Auto) 28.6 % Monocytes (%) (Auto) 9.6 % Eosinophils (%) (Auto) 0.5 % Basophils (%) (Auto) 0.6 % Neutrophils # (Auto) 6.3 TH/MM3 Lymphocytes # (Auto) 3.0 TH/MM3 Monocytes # (Auto) 1.0 TH/MM3 Eosinophils # (Auto) 0.0 TH/MM3 Basophils # (Auto) 0.1 TH/MM3 CBC Comment DIFF FINAL Differential Comment Prothrombin Time 11.5 SEC Prothromb Time International 1.0 RATIO Ratio Activated Partial 27.4 SEC Thromboplast Time Sodium Level 144 MEQ/L Potassium Level 3.5 MEQ/L Chloride Level 109 MEQ/L Carbon Dioxide Level 26.7 MEQ/L Anion Gap 8 MEQ/L Blood Urea Nitrogen 9 MG/DL Creatinine 0.60 MG/DL Estimat Glomerular Filtration 135 ML/MIN Rate Random Glucose 96 MG/DL Calcium Level 7.9 MG/DL Total Bilirubin 0.2 MG/DL Aspartate Amino Transf 12 U/L (AST/SGOT) Alanine Aminotransferase 24 U/L (ALT/SGPT) Alkaline Phosphatase 89 U/L Total Protein 7.4 GM/DL Albumin 3.6 GM/DL Differential Diagnosis Differential diagnosis includes neuropathy, claudication, PAD, PVD, chronic pain , phantom pain, neuralgia. Narrative Course The patient had an IV established, labs are drawn and sent, and the patient was placed on cardiac telemetry monitoring and continuous pulse oximetry monitoring. The patient had Doppler pulses of the right femoral, right posterior tibialis, and right dorsalis pedis, and the right lower extremity was warm, there is no coolness noted. The patient's pain is worse with rest and at night, improved with activity, the opposite of classic claudication. I discussed the patient with her vascular surgeon, Dr. Wheeler, at 7:50 PM who thinks the patient's pain may be secondary to neuropathy and he has given the patient a referral to see neurology. No acute indication for CTAs the patient has distal pulses and the right lower extremity is warm, this may be related to neuropathy. The patient was provided morphine and Zofran with IV fluids while her electrolytes were evaluated. Labs are unremarkable. The patient is reevaluated at 9 PM, continue to have pain, therefore, was administered Dilaudid intravenously. The patient will be discharged home on pain medications and is advised to continue taking her gabapentin. Diagnosis Primary Impression: Chronic leg pain Qualified Code: M79.604 - Chronic pain of right lower extremity Patient Instructions: General Instructions Additional Instructions: Medications as directed. Follow-up with her primary physician. Return if symptoms worsen or progress. Med/Other Pt SpecificInfo: Prescription(s) given Scripts Oxycodone-Acetaminophen (Percocet)10-325 mg Tab1 Tab PO Q6H PRN (PAIN) #20 TAB Ref 0 Prov:Cabrera Mcwilliams MD 07/16/16 Disposition: 01 DISCHARGE HOME Condition: Stable Cabrera Mcwilliams MD July 16, 2016 19:59
[2016-07-16] MEDS ORDERED: SODIUM CHLORID 0.9% 500 ML INJ 500 ML IV ONE (20:00)
[2016-07-16] MEDS ORDERED: MORPHINE SULFATE 4 MG/ML INJ IV PUSH ONE (20:00)
[2016-07-16] MEDS ORDERED: ONDANSETRON HCL 4 MG/2 ML VIAL IV PUSH ONE (20:00)
[2016-07-16 20:13] VITALS: BP 142/78; PULSE 76; RESP 18; O2SAT 99
[2016-07-16 20:32] LABS: AUTOMATED NEUTROPHIL # 6.3 TH/MM3 (1.8-7.7); BASOPHIL # 0.1 TH/MM3 (0-0.2); BASOPHIL % 0.6 % (0.0-2.0); EOSINOPHIL % 0.5 % (0.0-4.0); HEMATOCRIT 39.9 % (35.0-46.0); HEMO FLAGS DIFF FINAL; LYMPH % 28.6 % (9.0-44.0); MEAN CELL VOLUME 87.6 FL (80.0-100.0); MEAN CORPUSCULAR HEMOGLOBIN 28.3 PG (27.0-34.0); MEAN CORPUSCULAR HGB CONC 32.3 % (32.0-36.0); MONO % 9.6 % (0.0-8.0); NEUT % 60.7 % (16.0-70.0); PLATELET COUNT 256 TH/MM3 (150-450); RED BLOOD COUNT 4.56 MIL/MM3 (4.00-5.30); RED CELL DISTRIBUTION WIDTH 16.3 % (11.6-17.2); WHITE BLOOD COUNT 10.4 TH/MM3 (4.0-11.0)
[2016-07-16 20:36] LABS: APTT (PATIENT) 27.4 SEC (24.3-30.1); PROTHROMBIN TIME - PATIENT 11.5 SEC (9.8-11.6)
[2016-07-16 20:44] LABS: ALKALINE PHOSPHATASE 89 U/L (45-117); TOTAL BILIRUBIN ADULT 0.2 MG/DL (0.2-1.0)
[2016-07-16 20:53] LABS: ALT (GPT) 24 U/L (10-53); ANION GAP 8 MEQ/L (5-15); AST (GOT) 12 U/L (15-37); BICARBONATE 26.7 MEQ/L (21.0-32.0); BLOOD UREA NITROGEN 9 MG/DL (7-18); CHLORIDE 109 MEQ/L (98-107); GLOMERULAR FILTRATION RATE 135 ML/MIN (>89); POTASSIUM 3.5 MEQ/L (3.5-5.1); SODIUM (NA) 144 MEQ/L (136-145)
[2016-07-16] MEDS ORDERED: HYDROmorphone HCL PF 1 MG/ML VIAL IV PUSH ONE (21:15)
[2016-07-16] MEDS ORDERED: PERC10TA27 PO (21:20)
== END 2016-07-16 22:05 | disposition home or self-care (01) ==
LOC: NEPC 17:49
DX: M79.604 Pain in right leg (principal); G89.29 Other chronic pain; I10 Essential (primary) hypertension; E78.1 Pure hyperglyceridemia; Z89.431 Acquired absence of right foot; Z79.01 Long term (current) use of anticoagulants; Z86.79 Personal history of other diseases of the circulatory system; Z87.39 Personal history of other diseases of the musculoskeletal system and connective tissue; Z86.59 Personal history of other mental and behavioral disorders; Z87.891 Personal history of nicotine dependence
CPT/HCPCS: 80053; 85025; 85610; 85730; 96361; 96374; 96375; 99284; J1170; J2270; J2405; J7040

== ENCOUNTER 2016-07-25 10:04 | Emergency (ER) | payer OTHER ==
[~2016-07-25] VITALS: Ht 165.1 cm; Wt 95.0 kg
[~2016-07-25 10:04] MED LIST changes: +PERC10TA27 PO
[2016-07-25 10:08] VITALS: BP 170/107; PULSE 100; RESP 15; TEMP 98.1; O2SAT 97
[2016-07-25 10:30] VITALS: BP 138/95; PULSE 89; RESP 20; TEMP 97.9; O2SAT 99
[2016-07-25] MEDS ORDERED: SODIUM CHLOR 0.9% 1000 ML INJ 1,000 ML IV SCH (10:39)
[2016-07-25] MEDS ORDERED: SODIUM CHLORIDE 0.9% FLUSH 10 ML FLUSH IV FLUSH PRN (10:45)
[2016-07-25] MEDS ORDERED: METOCLOPRAMIDE HCL 10 MG/2 ML VIAL IV PUSH ONE (10:45)
[2016-07-25] MEDS ORDERED: KETOROLAC TROMETHAMINE 30 MG/ML (IVP) VIAL IV PUSH ONE (10:45)
[2016-07-25] MEDS ORDERED: MORPHINE SULFATE 4 MG/ML INJ IV PUSH ONE (10:45)
[2016-07-25] MEDS ORDERED: DEXAMETHASONE SOD PHOS 20 MG/5 ML VIAL IV PUSH ONE (10:45)
[2016-07-25 10:55] VITALS: RESP 22; O2SAT 98
[2016-07-25 11:25] LABS: AUTOMATED NEUTROPHIL # 6.6 TH/MM3 (1.8-7.7); BASOPHIL # 0.1 TH/MM3 (0-0.2); BASOPHIL % 1.3 % (0.0-2.0); EOSINOPHIL % 0.4 % (0.0-4.0); HEMATOCRIT 39.5 % (35.0-46.0); HEMO FLAGS DIFF FINAL; LYMPH % 20.8 % (9.0-44.0); MEAN CELL VOLUME 88.4 FL (80.0-100.0); MEAN CORPUSCULAR HEMOGLOBIN 28.9 PG (27.0-34.0); MEAN CORPUSCULAR HGB CONC 32.7 % (32.0-36.0); MONO % 9.9 % (0.0-8.0); NEUT % 67.6 % (16.0-70.0); PLATELET COUNT 242 TH/MM3 (150-450); RED BLOOD COUNT 4.47 MIL/MM3 (4.00-5.30); RED CELL DISTRIBUTION WIDTH 16.4 % (11.6-17.2); WHITE BLOOD COUNT 9.7 TH/MM3 (4.0-11.0)
--- NOTE | 2016-07-25 11:26 | PD ---
HPI Chief Complaint: Pain: Acute or Chronic Time Seen by Provider: 10:34 Travel History International Travel<30 days: No Contact w/Intl Traveler<30days: No Traveled to known affect area: No History of Present Illness HPI Patient is a 36-year-old female who presents to emergency with complaints of chronic pain to her right leg. Patient reports that she is currently being seen by Dr. 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 Patient reports that her surgery was successful but has had pains to her right lower extremity since her surgery. She was seen in the ER on 07/16/16 for similar complaints and had a workup and case was discussed with Dr. Wheeler and it was recommended that patient see neurologist as pain may be secondary to neurpathy. Patient reports that she has an appointment with the neurologist on the of this month and also has an appointment with Dr. Wheeler on the of this month. Reports that she was sent home with a script for percocet which she ran out of and gabapentin which patient reports "doesn't help me at all." PFSH Past Medical History Hx Anticoagulant Therapy: Yes Arthritis: No Asthma: No Autoimmune Disease: No Anxiety: Yes Depression: No Heart Rhythm Problems: No Cancer: No Cardiovascular Problems: Yes (HTN) High Cholesterol: No Chemotherapy: No Chest Pain: Yes (Chest pain due to anxiety ) Congestive Heart Failure: No COPD: No Cerebrovascular Accident: No Diabetes: No Diminished Hearing: No Endocrine: No Gastrointestinal Disorders: No GERD: No Genitourinary: No Headaches: No Hiatal Hernia: No Hypertension: Yes Immune Disorder: No Implanted Vascular Access Dvce: Yes Kidney Stones: No Musculoskeletal: Yes (BLE PAIN) Neurologic: No Reproductive: No Respiratory: No Immunizations Current: Yes Migraines: No Radiation Therapy: No Renal Failure: No Seizures: No Sickle Cell Disease: No Sleep Apnea: No Thyroid Disease: No Triglycerides - High: Yes Ulcer: No Tetanus Vaccination: < 5 Years Influenza Vaccination: Yes ?: Not LMP: 07/18/16 : 5 Para: 4 Miscarriage: 1 : 0 Ovarian Cysts: Yes Tubal Ligation: Yes Past Surgical History Abdominal Surgery: No AICD: No Arteriovenous Shunt: No Body Medical Devices: Stent to BLE, CARDIAC STENTS X 2 Cardiac Surgery: Yes (STENTS X 2) Section: Yes (X 4) Ear Surgery: No Endocrine Surgery: No Eye Surgery: No Genitourinary Surgery: No Gynecologic Surgery: Yes (C SECTION X 4) Insulin Pump: No Joint Replacement: No Neurologic Surgery: No Oral Surgery: No Pacemaker: No Thoracic Surgery: No Other Surgery: Yes (STENTS BILAT LEGS) Social History Alcohol Use: No Tobacco Use: No Substance Use: No (QUESTIONABLE) Allergies-Medications (Allergen,Severity, Reaction): Coded Allergies: No Known Allergies (Unverified , 07/25/16) Reported Meds & Prescriptions Reported Meds & Active Scripts Active Reported Docusate Sodium 100 Mg Cap 100 Mg PO BID Mirtazapine 15 Mg Tab 15 Mg PO HS Nifedipine 20 Mg Cap 30 Mg PO DAILY Metoprolol Tartrate 25 Mg Tab 25 Mg PO BID Gabapentin 600 Mg Tab 600 Mg PO TID Plavix (Clopidogrel Bisulfate) 75 Mg Tab 75 Mg PO DAILY Atorvastatin (Atorvastatin Calcium) 20 Mg Tab 20 Mg PO HS Aspir-81 (Aspirin) 81 Mg Tabdr 1 Tab PO DAILY Review of Systems General / Constitutional: No: Fever Eyes: No: Visual changes HENT: No: Headaches Cardiovascular: No: Chest Pain or Discomfort Respiratory: No: Shortness of Breath Gastrointestinal: No: Abdominal Pain Genitourinary: No: Dysuria Musculoskeletal: Positive: Pain (rle) Skin: No Rash Neurologic: No: Weakness Psychiatric: No: Depression Endocrine: No: Polydipsia Hematologic/Lymphatic: No: Easy Bruising Physical Exam Narrative GENERAL: mild distress SKIN: Focused skin assessment warm/dry. HEAD: Atraumatic. Normocephalic. EYES: Pupils equal and round. No scleral icterus. No injection or drainage. ENT: No nasal bleeding or discharge. Mucous membranes pink and moist. NECK: Trachea midline. No JVD. CARDIOVASCULAR: Regular rate and rhythm. No murmur appreciated. RESPIRATORY: No accessory muscle use. Clear to auscultation. Breath sounds equal bilaterally. GASTROINTESTINAL: Abdomen soft, non-tender, nondistended. Hepatic and splenic margins not palpable. MUSCULOSKELETAL: No clubbing. No cyanosis. No edema. Patient with cramping to right calf, patient with partial right foot amputation, pulses intact, no neurological deficits, good capillary refill NEUROLOGICAL: Awake and alert. No obvious cranial nerve deficits. Motor grossly within normal limits. Normal speech. PSYCHIATRIC: Appropriate mood and affect; insight and judgment normal. Data Data Last Documented VS Vital Signs Date Time Temp Pulse Resp B/P Pulse Ox O2 Delivery O2 Flow Rate FiO2 07/25/16 10:55 22 98 Room Air 07/25/16 10:33 84 07/25/16 10:30 97.9 138/95 Orders Basic Metabolic Panel (Bmp) (07/25/16 10:39) Complete Blood Count With Diff (07/25/16 10:39) Prothrombin Time / Inr (Pt) (07/25/16 10:39) Act Partial Throm Time (Ptt) (07/25/16 10:39) Iv Access Insert/Monitor (07/25/16 10:39) Ecg Monitoring (07/25/16 10:39) Oximetry (07/25/16 10:39) Morphine Inj (Morphine Inj) (07/25/16 10:45) Sodium Chlor 0.9% 1000 Ml Inj (Ns 1000 M (07/25/16 10:39) Sodium Chloride 0.9% Flush (Ns Flush) (07/25/16 10:45) Us Leg Venous Doppler (07/25/16 ) Dexamethasone Inj (Decadron Inj) (07/25/16 10:45) Metoclopramide Inj (Reglan Inj) (07/25/16 10:45) Ketorolac Inj (Toradol Inj) (07/25/16 10:45) Labs Laboratory Tests Test 07/25/16 10:50 White Blood Count 9.7 TH/MM3 Red Blood Count 4.47 MIL/MM3 Hemoglobin 12.9 GM/DL Hematocrit 39.5 % Mean Corpuscular Volume 88.4 FL Mean Corpuscular Hemoglobin 28.9 PG Mean Corpuscular Hemoglobin 32.7 % Concent Red Cell Distribution Width 16.4 % Platelet Count 242 TH/MM3 Mean Platelet Volume 9.0 FL Neutrophils (%) (Auto) 67.6 % Lymphocytes (%) (Auto) 20.8 % Monocytes (%) (Auto) 9.9 % Eosinophils (%) (Auto) 0.4 % Basophils (%) (Auto) 1.3 % Neutrophils # (Auto) 6.6 TH/MM3 Lymphocytes # (Auto) 2.0 TH/MM3 Monocytes # (Auto) 1.0 TH/MM3 Eosinophils # (Auto) 0.0 TH/MM3 Basophils # (Auto) 0.1 TH/MM3 CBC Comment DIFF FINAL Differential Comment Prothrombin Time 11.4 SEC Prothromb Time International 1.0 RATIO Ratio Activated Partial 27.3 SEC Thromboplast Time Sodium Level 141 MEQ/L Potassium Level 3.6 MEQ/L Chloride Level 108 MEQ/L Carbon Dioxide Level 26.8 MEQ/L Anion Gap 6 MEQ/L Blood Urea Nitrogen 9 MG/DL Creatinine 0.53 MG/DL Estimat Glomerular Filtration 156 ML/MIN Rate Random Glucose 79 MG/DL Calcium Level 8.1 MG/DL MDM Medical Decision Making Medical Screen Exam Complete: Yes Emergency Medical Condition: Yes Interpretation(s) Vital Signs Date Time Temp Pulse Resp B/P Pulse Ox O2 Delivery O2 Flow Rate FiO2 07/25/16 10:55 22 98 Room Air 07/25/16 10:33 84 20 07/25/16 10:30 97.9 89 20 138/95 99 07/25/16 10:08 98.1 100 15 170/107 97 Differential Diagnosis Differential diagnosis neuropathy, dvt, pad, pvd, chronic pain, electrolyte abnormality, migraine headache Narrative Course 36 year old female who presents to ER with c/o of chronic right lower extremity leg pain. Patient reports cramping pain to her right lower extremity which appears to be chronic in nature. Plan to rule out dvt. There is a consideration for PAD but patient has had good pulses and her leg is warm with appropriate capillary refill. Plan to treat her chronic pain, will need to follow-up with Dr. Wheeler as well as her neurologist as outpatient. Patient also complaining of a migraine headache. Patient reports that she tried taking Aleve this morning with no relief of symptoms. Patient with normal neurological exam, plan to give migraine cocktail. patient was given a dose of narcotic pain medication - requesting to sign out AMA as her family member just got into an accident and she cannot stay for full workup AMA: The risks of leaving against medical advice without further evaluation treatment were discussed with the patient. These risks include cardiac dysfunction, cardiac dysrhythmia, possible heart attack, possible stroke or . The patient indicated understanding of these risks and appeared to have the capacity to make this decision. Diagnosis Primary Impression: Chronic leg pain Patient Instructions: General Instructions, Narcotic given in the ED Additional Instructions: You may return to ER at any time for re-evaluation of your symptoms Please follow up with your neurologist as well as Dr. Wheeler in the office as soon as possible Disposition: 07 AGAINST MEDICAL ADVICE Condition: Serious Frida West DO Jul 25, 2016 11:25
[2016-07-25 11:39] LABS: APTT (PATIENT) 27.3 SEC (24.3-30.1); PROTHROMBIN TIME - PATIENT 11.4 SEC (9.8-11.6)
[2016-07-25 11:41] LABS: BICARBONATE 26.8 MEQ/L (21.0-32.0); POTASSIUM 3.6 MEQ/L (3.5-5.1)
--- NOTE | 2016-07-25 12:21 | RADRPT ---
EXAM DATE/TIME: 07/25/2016 10:50 [facility] COMPARISON: US LEG RIGHT VENOUS DOPPLER, June 29, 2015, 1:11. INDICATIONS : Right leg pain. MEDICAL HISTORY : Hypertension. Hyperlipidemia, SURGICAL HISTORY : section. Right toes amputated. Tubal ligation. Stents in bilateral legs. ENCOUNTER: Initial ACUITY: 3 days PAIN SCORE: 9/10 LOCATION: Right leg. TECHNIQUE: Venous ultrasound of the leg was performed from the inguinal ligament to the proximal calf. Real-indio e, color Doppler and spectral tracing, compression and augmentation techniques were used. FINDINGS: There is normal compressibility of the deep venous system from the inguinal region to the proximal ca lf. No echogenic clot is seen in the lumen of the common femoral, femoral, popliteal, and posterior tibial veins. There is a normal response of the venous system to proximal and distal augmentation an d respiration. CONCLUSION: 1. No DVT identified. 2. There are several enlarged lymph nodes seen within the right groin. The largest measures 2.8 x 2.4 x 0.6 CM. Deondre Linares MD on July 25, 2016 at 12:18 Board Certified Radiologist. This report was verified electronically.
== END 2016-07-25 12:32 | disposition left against medical advice (07) ==
LOC: NEPE 10:04
DX: M79.604 Pain in right leg (principal); G89.29 Other chronic pain
CPT/HCPCS: 80048; 85025; 85610; 85730; 93971; 96374; 96375; 99285; J1100; J1885; J2270; J2765; J7030

== ENCOUNTER 2016-07-27 09:58 | Emergency (ER) | payer OTHER ==
[~2016-07-27] VITALS: Ht 165.1 cm; Wt 94.0 kg
[~2016-07-27 09:58] MED LIST changes: -HYDR-2376 PO; -HYDR-3288 PO; -PERC10TA27 PO
[2016-07-27 10:02] VITALS: BP 130/78; PULSE 95; RESP 24; TEMP 98.8; O2SAT 95
--- NOTE | 2016-07-27 10:13 | PD ---
HPI . chronic leg pain (right) Chief Complaint: Pain: Acute or Chronic Time Seen by Provider: 10:13 Travel History International Travel<30 days: No Contact w/Intl Traveler<30days: No Traveled to known affect area: No History of Present Illness HPI 36-year-old female here with complaints of chronic leg pain. Patient was seen on July 25, 2016 and told that she would need to follow-up with her primary care provider neurologist. Unfortunately she decided to leave AGAINST MEDICAL ADVICE. She tells me that she schedule an appointment with her primary care provider and neurologist, but she cannot get in for 2 weeks. She also tells me she needs refills on her pain medication and that she cannot get in with pain management for another week. She is in tears requesting pain medications. She tells me that they do not help get rid of her pain 100%, but they provide her enough relief to help care for her children. She denies any recent injury. She denies any falls. She has no other complaints. She is accompanied by her small child. PFSH Past Medical History Hx Anticoagulant Therapy: Yes Arthritis: No Asthma: No Autoimmune Disease: No Anxiety: Yes Depression: No Heart Rhythm Problems: No Cancer: No Cardiovascular Problems: Yes (HTN) High Cholesterol: No Chemotherapy: No Chest Pain: Yes (Chest pain due to anxiety ) Congestive Heart Failure: No COPD: No Cerebrovascular Accident: No Diabetes: No Diminished Hearing: No Endocrine: No Gastrointestinal Disorders: No GERD: No Genitourinary: No Headaches: No Hiatal Hernia: No Hypertension: Yes Immune Disorder: No Implanted Vascular Access Dvce: Yes Kidney Stones: No Musculoskeletal: Yes (BLE PAIN) Neurologic: No Reproductive: No Respiratory: No Immunizations Current: Yes Migraines: No Radiation Therapy: No Renal Failure: No Seizures: No Sickle Cell Disease: No Sleep Apnea: No Thyroid Disease: No Triglycerides - High: Yes Ulcer: No : 5 Para: 4 Miscarriage: 1 : 0 Ovarian Cysts: Yes Tubal Ligation: Yes Past Surgical History Abdominal Surgery: No AICD: No Arteriovenous Shunt: No Body Medical Devices: Stent to BLE, CARDIAC STENTS X 2 Cardiac Surgery: Yes (STENTS X 2) Section: Yes (X 4) Ear Surgery: No Endocrine Surgery: No Eye Surgery: No Genitourinary Surgery: No Gynecologic Surgery: Yes (C SECTION X 4) Insulin Pump: No Joint Replacement: No Neurologic Surgery: No Oral Surgery: No Pacemaker: No Thoracic Surgery: No Other Surgery: Yes (STENTS BILAT LEGS) Social History Alcohol Use: No Tobacco Use: No Substance Use: No (QUESTIONABLE) Allergies-Medications (Allergen,Severity, Reaction): Coded Allergies: No Known Allergies (Unverified , 07/25/16) Reported Meds & Prescriptions Reported Meds & Active Scripts Active Reported Docusate Sodium 100 Mg Cap 100 Mg PO BID Mirtazapine 15 Mg Tab 15 Mg PO HS Nifedipine 20 Mg Cap 30 Mg PO DAILY Metoprolol Tartrate 25 Mg Tab 25 Mg PO BID Gabapentin 600 Mg Tab 600 Mg PO TID Plavix (Clopidogrel Bisulfate) 75 Mg Tab 75 Mg PO DAILY Atorvastatin (Atorvastatin Calcium) 20 Mg Tab 20 Mg PO HS Aspir-81 (Aspirin) 81 Mg Tabdr 1 Tab PO DAILY Review of Systems General / Constitutional: No: Fever Eyes: No: Visual changes HENT: No: Headaches Cardiovascular: No: Chest Pain or Discomfort Respiratory: No: Shortness of Breath Gastrointestinal: No: Abdominal Pain Genitourinary: No: Dysuria Musculoskeletal: Positive: Pain (right leg pain ) Skin: No Rash Neurologic: No: Weakness Psychiatric: No: Depression Endocrine: No: Polydipsia Hematologic/Lymphatic: No: Easy Bruising Physical Exam Narrative GENERAL: AAO x 3, no acute distress, Well-nourished, well-developed patient. SKIN: Warm and dry. No visible rashes or bruising. HEAD: Normocephalic and atraumatic. EYES: No scleral icterus. No injection or drainage. ENT: No nasal drainage noted. Mucous membranes pink. Airway patent. NECK: Supple, trachea midline. No JVD. CARDIOVASCULAR: Regular rate and rhythm without murmurs, gallops, or rubs. RESPIRATORY: Breath sounds equal bilaterally. No accessory muscle use. No rhonchi or rales. GASTROINTESTINAL: Abdomen soft, non-tender, nondistended. EXTREMITIES: No cyanosis or edema. Bilateral legs without any edema, ecchymosis or color abnormality. Bilateral posterior tibial pulses present but faint. No temperature variation. No tenderness to palpation. BACK: Nontender without obvious deformity. No CVA tenderness. NEURO: CN II-12 intact, data warehouse developer strength normal b/l, UE and LE 5/5, no focal deficits PSYCH: AAO x 3, normal affect. Data Data Last Documented VS Vital Signs Date Time Temp Pulse Resp B/P Pulse Ox O2 Delivery O2 Flow Rate FiO2 07/27/16 10:02 98.8 95 24 130/78 95 Room Air MDM Medical Decision Making Medical Screen Exam Complete: Yes Emergency Medical Condition: Yes Medical Record Reviewed: Yes Differential Diagnosis Chronic right leg pain, narcotic dependence, drug-seeking behavior, Narrative Course This is a 36-year-old female here with complaints of chronic right foot pain. Patient is requesting pain medications or asking to somehow get her an earlier neurology appointment. I had a prolonged discussion with this patient regarding her chronic foot pain. I've explained to her that she will need to follow-up with primary care provider and get a referral for neurology care. She is tearful. I offered her Toradol which she declined. She is requesting narcotic pain medication and I advised her that I am unable to fill this. Diagnosis Primary Impression: Chronic leg pain Qualified Code: M79.604 - Chronic pain of right lower extremity Referrals: Neurologist Patient Instructions: General Instructions Additional Instructions: As we discussed, you need to follow-up with her primary care provider and neurologist. Med/Other Pt SpecificInfo: No Change to Meds Disposition: 01 DISCHARGE HOME Condition: Stable Tara Bob Jul 27, 2016 10:13
== END 2016-07-27 10:41 | disposition home or self-care (01) ==
LOC: NEPD 09:58
DX: M79.604 Pain in right leg (principal); G89.29 Other chronic pain
CPT/HCPCS: 99281

== ENCOUNTER 2016-08-08 01:08 | Observation (INO) | payer OTHER ==
[2016-08-08] VITALS (9 sets, daily range): BP systolic 113–194; BP diastolic 55–128; PULSE 63–93; RESP 16–18; TEMP 97.6–98.8; O2SAT 96–100
[~2016-08-08] VITALS: Ht 165.1 cm; Wt 96.0 kg
[2016-08-08] MEDS ORDERED: HYDROmorphone HCL PF 1 MG/ML VIAL IV PUSH ONE ×3 (03:15→14:45)
[2016-08-08] MEDS ORDERED: ONDANSETRON HCL 4 MG/2 ML VIAL IV PUSH ONE (03:15)
--- NOTE | 2016-08-08 03:37 | PD ---
HPI Chief Complaint: Pain: Acute or Chronic Time Seen by Provider: 03:11 Travel History International Travel<30 days: No Contact w/Intl Traveler<30days: No Traveled to known affect area: No History of Present Illness HPI 36-year-old female with history of severe PVD currently following up with Dr. Malik, status post previous right femoral stents, presents to the ER today for right sided leg pains that have been going on for several weeks. She states that she has had this issue in the past and it is hurting her again. She states she has been nauseous and vomiting. She has been taking her pain medications without significant relief. She denies any fevers or any other issues. It appears that she has been here for similar symptom complaints on multiple occasions. Modifying Factors: None Associated Signs & Symptoms: Acute on chronic right leg pain Risk Factors: Right peripheral vascular disease of the leg and femoral stents PFSH Past Medical History Hx Anticoagulant Therapy: Yes (PLAVIX) Arthritis: No Asthma: No Autoimmune Disease: No Anxiety: Yes Depression: No Heart Rhythm Problems: No Cancer: No Cardiovascular Problems: Yes (HTN) High Cholesterol: Yes Chemotherapy: No Chest Pain: Yes (Chest pain due to anxiety ) Congestive Heart Failure: No COPD: No Cerebrovascular Accident: No Diabetes: No Diminished Hearing: No Endocrine: No Gastrointestinal Disorders: No GERD: No Genitourinary: No Headaches: No Hiatal Hernia: No Hypertension: Yes Immune Disorder: No Implanted Vascular Access Dvce: Yes Kidney Stones: No Musculoskeletal: Yes (BLE PAIN) Neurologic: No Reproductive: No Respiratory: No Immunizations Current: Yes Migraines: No Radiation Therapy: No Renal Failure: No Seizures: No Sickle Cell Disease: No Sleep Apnea: No Thyroid Disease: No Triglycerides - High: Yes Ulcer: No Tetanus Vaccination: < 5 Years Influenza Vaccination: Yes ?: Not : 5 Para: 4 Miscarriage: 1 : 0 Ovarian Cysts: Yes Tubal Ligation: Yes Past Surgical History Abdominal Surgery: No AICD: No Arteriovenous Shunt: No Body Medical Devices: Stent to BLE, CARDIAC STENTS X 2 Cardiac Surgery: Yes (STENTS X 2) Section: Yes (X 4) Ear Surgery: No Endocrine Surgery: No Eye Surgery: No Genitourinary Surgery: No Gynecologic Surgery: Yes (C SECTION X 4) Insulin Pump: No Joint Replacement: No Neurologic Surgery: No Oral Surgery: No Pacemaker: No Thoracic Surgery: No Other Surgery: Yes (STENTS BILAT LEGS) Social History Alcohol Use: No Tobacco Use: No Substance Use: No Allergies-Medications (Allergen,Severity, Reaction): Coded Allergies: No Known Allergies (Unverified , 08/08/16) Reported Meds & Prescriptions Reported Meds & Active Scripts Active Reported Docusate Sodium 100 Mg Cap 100 Mg PO BID Mirtazapine 15 Mg Tab 15 Mg PO HS Nifedipine 20 Mg Cap 30 Mg PO DAILY Metoprolol Tartrate 25 Mg Tab 25 Mg PO BID Gabapentin 600 Mg Tab 600 Mg PO TID Plavix (Clopidogrel Bisulfate) 75 Mg Tab 75 Mg PO DAILY Atorvastatin (Atorvastatin Calcium) 20 Mg Tab 20 Mg PO HS Aspir-81 (Aspirin) 81 Mg Tabdr 1 Tab PO DAILY Review of Systems Except as stated in HPI: all other systems reviewed are Neg Physical Exam Narrative GENERAL: Well-developed middle age after [place] female patient currently in mild distress. Awake and oriented 3. SKIN: Focused skin assessment warm/dry. HEAD: Atraumatic. Normocephalic. EYES: Pupils equal and round. No scleral icterus. No injection or drainage. ENT: No nasal bleeding or discharge. Mucous membranes pink and moist. NECK: Trachea midline. No JVD. CARDIOVASCULAR: Regular rate and rhythm. No murmur appreciated. RESPIRATORY: No accessory muscle use. Clear to auscultation. Breath sounds equal bilaterally. GASTROINTESTINAL: Abdomen soft, non-tender, nondistended. Hepatic and splenic margins not palpable. MUSCULOSKELETAL: No obvious deformities. No clubbing. No cyanosis. No edema. EXTREMITIES: No clubbing, cyanosis, or edema. No joint tenderness, effusion, or edema noted. No calf tenderness. She is status post right distal foot amputation, pulses are present. NEUROLOGICAL: Awake and alert. No obvious cranial nerve deficits. Motor grossly within normal limits. Normal speech. PSYCHIATRIC: Appropriate mood and affect; insight and judgment normal. Data Data Last Documented VS Vital Signs Date Time Temp Pulse Resp B/P Pulse Ox O2 Delivery O2 Flow Rate FiO2 08/08/16 05:33 78 18 113/55 96 Room Air 08/08/16 01:10 98.4 Orders Complete Blood Count With Diff (08/08/16 03:11) Comprehensive Metabolic Panel (08/08/16 03:11) Prothrombin Time / Inr (Pt) (08/08/16 03:11) Act Partial Throm Time (Ptt) (08/08/16 03:11) Hydromorphone Pf Inj (Dilaudid Pf Inj) (08/08/16 03:15) Ondansetron Inj (Zofran Inj) (08/08/16 03:15) Hydromorphone Pf Inj (Dilaudid Pf Inj) (08/08/16 04:45) Lactic Acid Sepsis Protocol (08/08/16 04:44) Urinalysis - C+S If Indicated (08/08/16 04:44) Blood Culture (08/08/16 04:44) Blood Glucose (08/08/16 04:44) Ecg Monitoring (08/08/16 04:44) Iv Access Insert/Monitor (08/08/16 04:44) Oximetry (08/08/16 04:44) Oxygen Administration (08/08/16 04:44) Ct Abd/Pel W Iv Contrast(Rout) (08/08/16 04:44) Cta Runoff W Iv Contrast W 3d (08/08/16 ) Iohexol 350 Inj (Omnipaque 350 Inj) (08/08/16 06:09) Labs Laboratory Tests Test 08/08/16 08/08/16 03:26 05:10 White Blood Count 15.9 TH/MM3 Red Blood Count 4.74 MIL/MM3 Hemoglobin 13.8 GM/DL Hematocrit 41.0 % Mean Corpuscular Volume 86.5 FL Mean Corpuscular Hemoglobin 29.1 PG Mean Corpuscular Hemoglobin 33.7 % Concent Red Cell Distribution Width 16.4 % Platelet Count 263 TH/MM3 Mean Platelet Volume 9.2 FL Neutrophils (%) (Auto) 83.0 % Lymphocytes (%) (Auto) 11.1 % Monocytes (%) (Auto) 5.2 % Eosinophils (%) (Auto) 0.1 % Basophils (%) (Auto) 0.6 % Neutrophils # (Auto) 13.2 TH/MM3 Lymphocytes # (Auto) 1.8 TH/MM3 Monocytes # (Auto) 0.8 TH/MM3 Eosinophils # (Auto) 0.0 TH/MM3 Basophils # (Auto) 0.1 TH/MM3 CBC Comment DIFF FINAL Differential Comment Prothrombin Time 12.4 SEC Prothromb Time International 1.1 RATIO Ratio Activated Partial 23.9 SEC Thromboplast Time Sodium Level 144 MEQ/L Potassium Level 3.5 MEQ/L Chloride Level 112 MEQ/L Carbon Dioxide Level 22.7 MEQ/L Anion Gap 9 MEQ/L Blood Urea Nitrogen 9 MG/DL Creatinine 0.56 MG/DL Estimat Glomerular Filtration 147 ML/MIN Rate Random Glucose 98 MG/DL Calcium Level 8.1 MG/DL Total Bilirubin 0.4 MG/DL Aspartate Amino Transf 20 U/L (AST/SGOT) Alanine Aminotransferase 35 U/L (ALT/SGPT) Alkaline Phosphatase 98 U/L Total Protein 8.3 GM/DL Albumin 3.8 GM/DL Lactic Acid Level 0.8 mmol/L [facility] Medical Decision Making Medical Screen Exam Complete: Yes Emergency Medical Condition: Yes Medical Record Reviewed: Yes Interpretation(s) Laboratory Tests Test 08/08/16 03:26 White Blood Count 15.9 TH/MM3 (4.0-11.0) Neutrophils (%) (Auto) 83.0 % (16.0-70.0) Neutrophils # (Auto) 13.2 TH/MM3 (1.8-7.7) Prothrombin Time 12.4 SEC (9.8-11.6) Activated Partial 23.9 SEC Thromboplast Time (24.3-30.1) Chloride Level 112 MEQ/L (98-107) Calcium Level 8.1 MG/DL (8.5-10.1) Total Protein 8.3 GM/DL (6.4-8.2) Last 24 hours Impressions Abdomen/Pelvis CT 08/08/16 0444 Signed Impressions: Service Date/Time: , August 08, 2016 05:54 - CONCLUSION: 1. No obstruction or acute inflammatory changes are demonstrated. 2. 2.7 cm left ovarian cyst. Small, nonspecific free fluid in the pelvic cul-de-sac. 3. Fat containing umbilical and left inguinal hernias. No bowel herniation. 4. Mild bibasilar infiltrate. Ziyad Quintero MD Differential Diagnosis Acute on chronic right leg painsperipheral vascular disease versus acute on chronic pain versus opiate withdrawals Narrative Course Patient was given IV Dilaudid, Zofran, and workup had been initiated. Lab work shows significant white blood cell count elevation but lactate is normal. Patient is afebrile. Considering the vomiting, abdominal CT was done which did not show any signs of acute intra-abdominal processes. CTA with runoff was done to evaluate the leg further. At this point, considering the patient is having more severe pain than usual, have talked to Dr. Ahuja who states that she would wait until the CTA is back for further evaluation. However, she suspect that the patient may be drug seeking and states that she does not feel the patient needs to be admitted unless the CTA is abnormal. Physician Communication Physician Communication At this point, case is signed out to Dr. Boo awaiting CTA. Diagnosis Primary Impression: PAD (peripheral artery disease) Additional Impressions: Claudication Chronic leg pain Condition: Stable Rosemary Rothman MD Aug 08, 2016 03:36
[2016-08-08 03:40] LABS: AUTOMATED NEUTROPHIL # 13.2 TH/MM3 (1.8-7.7); BASOPHIL # 0.1 TH/MM3 (0-0.2); BASOPHIL % 0.6 % (0.0-2.0); EOSINOPHIL % 0.1 % (0.0-4.0); HEMO FLAGS DIFF FINAL; LYMPH % 11.1 % (9.0-44.0); LYMPHOCYTE # 1.8 TH/MM3 (1.0-4.8); MEAN CELL VOLUME 86.5 FL (80.0-100.0); MEAN CORPUSCULAR HEMOGLOBIN 29.1 PG (27.0-34.0); MEAN CORPUSCULAR HGB CONC 33.7 % (32.0-36.0); MONO % 5.2 % (0.0-8.0); PLATELET COUNT 263 TH/MM3 (150-450); RED BLOOD COUNT 4.74 MIL/MM3 (4.00-5.30); RED CELL DISTRIBUTION WIDTH 16.4 % (11.6-17.2); WHITE BLOOD COUNT 15.9 TH/MM3 (4.0-11.0)
[2016-08-08 03:50] LABS: APTT (PATIENT) 23.9 SEC (24.3-30.1); INTERNATIONAL NORMALIZED RATIO 1.1 RATIO; PROTHROMBIN TIME - PATIENT 12.4 SEC (9.8-11.6)
[2016-08-08 03:55] LABS: ALKALINE PHOSPHATASE 98 U/L (45-117); TOTAL BILIRUBIN ADULT 0.4 MG/DL (0.2-1.0)
[2016-08-08 03:56] LABS: ALT (GPT) 35 U/L (10-53); ANION GAP 9 MEQ/L (5-15); AST (GOT) 20 U/L (15-37); BICARBONATE 22.7 MEQ/L (21.0-32.0); BLOOD UREA NITROGEN 9 MG/DL (7-18); CHLORIDE 112 MEQ/L (98-107); GLOMERULAR FILTRATION RATE 147 ML/MIN (>89); POTASSIUM 3.5 MEQ/L (3.5-5.1); SODIUM (NA) 144 MEQ/L (136-145)
[2016-08-08] MEDS ORDERED: IOHEXOL 350 MG/ML 10 ML VIAL (for RAD DIAG) IV ONE (06:09)
--- NOTE | 2016-08-08 06:20 | RADRPT ---
EXAM DATE/TIME: 08/08/2016 05:54 [facility] COMPARISON: CTA RUNOFF W 3D RECON, November 28, 2015, 20:01. INDICATIONS : Nausea and vomiting. IV CONTRAST: 100 cc Omnipaque 350 (iohexol) IV ; Cumulative dose for multiple exams. ORAL CONTRAST: No oral contrast ingested. RADIATION DOSE: 12.16 CTDIvol (mGy) MEDICAL HISTORY : Hypertension. Peripheral vascular disease.Cardiac stents. Ovarain cysts. SURGICAL HISTORY : section. Tubal ligation.Right toe amputation. ENCOUNTER: Initial ACUITY: 1 day PAIN SCALE: 4/10 LOCATION: Epigastric TECHNIQUE: Volumetric scanning of the abdomen and pelvis was performed. Using automated exposure control and ad justment of the mA and/or kV according to patient size, radiation dose was kept as low as reasonably achievable to obtain optimal diagnostic quality images. FINDINGS: LOWER LUNGS: Mild infiltrate seen of both lung bases. LIVER: Homogeneous density without lesion. There is no dilation of the biliary tree. No calcified gallston es. SPLEEN: Normal size without lesion. PANCREAS: Within normal limits. KIDNEYS: Normal in size and shape. There is no mass, stone or hydronephrosis. ADRENAL GLANDS: Within normal limits. VASCULAR: Left iliac stent and I believe it may be thrombosed. Patient is scheduled for runoff. BOWEL/MESENTERY: The stomach, small bowel, and colon demonstrate no acute abnormality. No free air. Appendix is well-v isualized, normal.. ABDOMINAL WALL: Small fat containing umbilical hernia again noted. RETROPERITONEUM: There is no lymphadenopathy. BLADDER: No wall thickening or mass. REPRODUCTIVE: Centimeter left ovarian cyst. Small free fluid seen in the pelvic cul-de-sac. INGUINAL: Bilateral fat containing inguinal hernias. MUSCULOSKELETAL: Within normal limits for patient age. CONCLUSION: 1. No obstruction or acute inflammatory changes are demonstrated. 2. 2.7 cm left ovarian cyst. Small, nonspecific free fluid in the pelvic cul-de-sac. 3. Fat containing umbilical and left inguinal hernias. No bowel herniation. 4. Mild bibasilar infiltrate. Ziyad Quintero MD on August 08, 2016 at 6:13 Board Certified Radiologist. This report was verified electronically.
[2016-08-08 07:16] LABS: BACTERIA, URINE MOD /hpf; BLOOD, URINE TRACE (NEG); COMMENT (UR) CULTURE INDICATED; CULTURE IF INDICATED CULTURE INDICATED; GLUCOSE,URINE NEG (NEG); KETONE, URINE TRACE mg/dL (NEG); MUCUS URINE FEW /lpf (OCC); NITRITE,URINE NEG (NEG); SQUAMOUS EPITHELIAL CELL URINE 48 /hpf (0-5); URINE COLOR YELLOW (YELLW/STRAW)
--- NOTE | 2016-08-08 07:59 | RADRPT ---
EXAM DATE/TIME: 08/08/2016 05:49 [facility] COMPARISON: CTA RUNOFF W 3D RECON, November 28, 2015, 20:01. INDICATIONS : Right leg pain. IV CONTRAST: 100 cc Omnipaque 350 (iohexol) IV ; Cumulative dose for multiple exams. RADIATION DOSE: 4.95 CTDIvol (mGy) MEDICAL HISTORY : Hypertension. Cardiovascular disease Peripheral vascular disease. SURGICAL HISTORY : section. Tubal ligation.Toes amputated. Bilateral leg stents. Cardiac stents. ENCOUNTER: Initial ACUITY: 2 days PAIN SCALE: 4/10 LOCATION: Right lower extremeties. TECHNIQUE: Volumetric scanning was performed using a multi-row detector CT scanner. The data was post processed with a variety of visualization algorithms including full volume maximum intensity projection, multi -planar sliding thin slab reformation, curved planar reformation, and surface rendering techniques. Using automated exposure control and adjustment of the mA and/or kV according to patient size, radiat ion dose was kept as low as reasonably achievable to obtain optimal diagnostic quality images. ANGIOGRAPHIC FINDINGS: AORTA: Abdominal aorta is normal in caliber without significant flow-limiting stenosis or aneurysm. VISCERAL ARTERIES: There are single bilateral renal arteries which are patent. Celiac and SMA are patent. ANITA is patent. RIGHT LEG: INFLOW: Mild diffuse mid to distal stenosis of the common iliac artery secondary to eccentric noncalcified pl aque. There is occlusion of the external iliac artery origin. Internal iliac is patent. There is jaspal nstitution of the common femoral artery just beyond the inguinal ligament. Mild long segment stenosis of the common femoral artery secondary to eccentric noncalcified plaque. OUTFLOW: Profunda is patent. SFA is patent. Popliteal artery is patent. RUNOFF: Evaluation of the runoff vessels is limited due to venous contamination. Suspect diminutive caliber t hree-vessel runoff to the ankle level. LEFT LEG: INFLOW: Common iliac artery is patent. There are 2 overlapping stents extending from the distal left common i liac artery to the distal left external iliac artery. Stents appear grossly patent though the evaluat ion is somewhat limited by stent artifact. Post endarterectomy changes are noted in the left common f emoral artery which appears patent. OUTFLOW: Profunda is patent. SFA is patent. Popliteal artery is patent. RUNOFF: Evaluation of the runoff vessels is limited due to venous contamination. Suspect diminutive caliber t hree-vessel runoff to the ankle level. GENERAL FINDINGS: Groundglass opacities at the lung bases likely reflect atelectasis. Examination of the abdominal visc era is limited due to arterial phase technique. Liver, spleen, adrenal glands, pancreas, and gallblad marc are grossly unremarkable. Kidneys demonstrate symmetrical enhancement without evidence for radiop aque renal calculi or hydronephrosis. No significant focal renal mass. Appendix is visualized and nor mal in appearance. Bowel appears mostly unremarkable without evidence for obstruction. There is a sma ll fat containing periumbilical hernia. Bladder is mildly distended and appears unremarkable. Uterus and adnexa are unremarkable for patient' s age. Trace free fluid in the dependent inferior pelvis is likely physiological. Multiple small bila teral inguinal nodes are likely reactive. No focal abnormal lytic or blastic bony lesions. CONCLUSION: 1. Grossly patent overlapping left iliac stents extending from the distal left common iliac artery to the very distal left externally artery with post endarterectomy changes of the left common femoral a rtery. 2. 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 3. No significant outflow disease bilaterally. 4. Limited evaluation of the runoff vessels due to venous contamination although there is likely dimi nutive 3 vessel runoff bilaterally. Ramos Hargrove MD on August 08, 2016 at 7:16 Board Certified Radiologist. This report was verified electronically.
[2016-08-08] MEDS ORDERED: cefTRIAXone INJ 1,000 MG in SODIUM CHLORIDE 0.9% INJ 100 ML IV ONE (08:30)
--- NOTE | 2016-08-08 08:49 | PD ---
Physical Exam Date Seen by Provider: Aug 08, 2016 Time Seen by Provider: 07:00 Narrative 36-year-old female signed out to me by Dr. Aragon. We were awaiting a CT runoff. The patient presents with intractable pain of her right lower extremity. Concern was that this was ischemia. CT runoff shows adequate flow to the lower extremities. The patient has had stenting of her arteries in her lower extremity. She's received 2 doses of IVD pain medication and is still painful. She is also had 2 contrast [address]s. Given this, I feel that she would benefit from an observation stay with hydration and pain control. [facility] Data Last Documented VS Vital Signs Date Time Temp Pulse Resp B/P Pulse Ox O2 Delivery O2 Flow Rate FiO2 08/08/16 07:10 69 18 133/83 100 Room Air 08/08/16 01:10 98.4 Orders Complete Blood Count With Diff (08/08/16 03:11) Comprehensive Metabolic Panel (08/08/16 03:11) Prothrombin Time / Inr (Pt) (08/08/16 03:11) Act Partial Throm Time (Ptt) (08/08/16 03:11) Hydromorphone Pf Inj (Dilaudid Pf Inj) (08/08/16 03:15) Ondansetron Inj (Zofran Inj) (08/08/16 03:15) Hydromorphone Pf Inj (Dilaudid Pf Inj) (08/08/16 04:45) Lactic Acid Sepsis Protocol (08/08/16 04:44) Urinalysis - C+S If Indicated (08/08/16 04:44) Blood Culture (08/08/16 04:44) Blood Glucose (08/08/16 04:44) Ecg Monitoring (08/08/16 04:44) Iv Access Insert/Monitor (08/08/16 04:44) Oximetry (08/08/16 04:44) Oxygen Administration (08/08/16 04:44) Ct Abd/Pel W Iv Contrast(Rout) (08/08/16 04:44) Cta Runoff W Iv Contrast W 3d (08/08/16 ) Iohexol 350 Inj (Omnipaque 350 Inj) (08/08/16 06:09) Urine Culture (08/08/16 06:50) Ceftriaxone Inj (Rocephin Inj) (08/08/16 08:30) Sodium Chlor 0.9% 1000 Ml Inj (Ns 1000 M (08/08/16 08:30) Labs Laboratory Tests Test 08/08/16 08/08/16 08/08/16 03:26 05:10 06:50 White Blood Count 15.9 TH/MM3 Red Blood Count 4.74 MIL/MM3 Hemoglobin 13.8 GM/DL Hematocrit 41.0 % Mean Corpuscular Volume 86.5 FL Mean Corpuscular Hemoglobin 29.1 PG Mean Corpuscular Hemoglobin 33.7 % Concent Red Cell Distribution Width 16.4 % Platelet Count 263 TH/MM3 Mean Platelet Volume 9.2 FL Neutrophils (%) (Auto) 83.0 % Lymphocytes (%) (Auto) 11.1 % Monocytes (%) (Auto) 5.2 % Eosinophils (%) (Auto) 0.1 % Basophils (%) (Auto) 0.6 % Neutrophils # (Auto) 13.2 TH/MM3 Lymphocytes # (Auto) 1.8 TH/MM3 Monocytes # (Auto) 0.8 TH/MM3 Eosinophils # (Auto) 0.0 TH/MM3 Basophils # (Auto) 0.1 TH/MM3 CBC Comment DIFF FINAL Differential Comment Prothrombin Time 12.4 SEC Prothromb Time International 1.1 RATIO Ratio Activated Partial 23.9 SEC Thromboplast Time Sodium Level 144 MEQ/L Potassium Level 3.5 MEQ/L Chloride Level 112 MEQ/L Carbon Dioxide Level 22.7 MEQ/L Anion Gap 9 MEQ/L Blood Urea Nitrogen 9 MG/DL Creatinine 0.56 MG/DL Estimat Glomerular Filtration 147 ML/MIN Rate Random Glucose 98 MG/DL Calcium Level 8.1 MG/DL Total Bilirubin 0.4 MG/DL Aspartate Amino Transf 20 U/L (AST/SGOT) Alanine Aminotransferase 35 U/L (ALT/SGPT) Alkaline Phosphatase 98 U/L Total Protein 8.3 GM/DL Albumin 3.8 GM/DL Lactic Acid Level 0.8 mmol/L Urine Color YELLOW Urine Turbidity HAZY Urine pH 6.0 Urine Specific [place] GREATER THAN 1.050 Urine Protein 30 mg/dL Urine Glucose (UA) NEG mg/dL Urine Ketones TRACE mg/dL Urine Occult Blood TRACE Urine Nitrite NEG Urine Bilirubin NEG Urine Urobilinogen LESS THAN 2.0 MG/DL Urine Leukocyte Esterase NEG Urine RBC 1 /hpf Urine WBC 2 /hpf Urine Squamous Epithelial 48 /hpf Cells Urine Bacteria MOD /hpf Urine Mucus FEW /lpf Microscopic Urinalysis Comment CULTURE INDICATED MDM Medical Record Reviewed: Yes Supervised Visit with DONNA: No Narrative Course 36-year-old female with history of peripheral vascular disease, presents today with complaints of intractable right lower extremity pain. The patient does have home narcotics that she reports are not controlling the pain. Concern was that she may have an ischemic event of her right lower extremity. CT runoff shows good adequate blood flow. She is received 2 doses of IVD pain medicine and still having discomfort. She's also received 2 doses of IV contrast and I feel she would benefit from I V fluids for kidney function presentation. Diagnosis Primary Impression: PAD (peripheral artery disease) Additional Impressions: Chronic leg pain Claudication Condition: Stable Mike Boo MD Aug 08, 2016 08:49
[2016-08-08] MEDS: SODIUM CHLOR 0.9% 1000 ML INJ 1,000 ML IV SCH ×4 (09:11→21:09)
[2016-08-08] MEDS ORDERED: HYDROmorphone HCL PF 1 MG/ML VIAL IVS ONE (09:15)
[2016-08-08] MEDS ORDERED: ACETAMINOPHEN 325 MG TAB PO PRN (09:45)
[2016-08-08] MEDS ORDERED: LACTULOSE SYRUP 20 GM/30 ML CUP PO PRN (09:45)
[2016-08-08] MEDS ORDERED: SENNOSIDES 8.6 MG TAB PO PRN (09:45)
[2016-08-08] MEDS ORDERED: SODIUM CHLORIDE 0.9% FLUSH 10 ML FLUSH IV FLUSH PRN (09:45)
[2016-08-08] MEDS ORDERED: BISACODYL 10 MG SUPP RECTAL PRN (09:45)
[2016-08-08] MEDS ORDERED: MAGNESIUM HYDROXIDE SUSP 30 ML CUP PO PRN (09:45)
[2016-08-08] MEDS ORDERED: ONDANSETRON HCL 4 MG/2 ML VIAL IVP PRN (09:45)
[2016-08-08] MEDS: ENOXAPARIN SODIUM 40 MG/0.4 ML SYRINGE SQ SCH (10:24)
[2016-08-08] MEDS ORDERED: HYDR-3366 PO (11:15)
[2016-08-08] MEDS ORDERED: ACETAMINOPHEN/HYDROcodone 325 MG/10 MG TAB PO PRN (11:30)
--- NOTE | 2016-08-08 11:31 | RADRPT ---
EXAM DATE/TIME: 08/08/2016 11:05 [place] COMPARISON: CHEST PA & LAT, June 05, 2016, 11:56. INDICATIONS : Evaluate for infiltrate. Shortness of breath and coughing. MEDICAL HISTORY : Hypertension. Smoker. SURGICAL HISTORY : None. ENCOUNTER: Subsequent ACUITY: 2 days PAIN SCORE: 0/10 LOCATION: Bilateral chest FINDINGS: A single view of the chest demonstrates the lungs to be symmetrically aerated without evidence of mas s, infiltrate or effusion. Minimal basilar density probably represents atelectasis. The cardiomediast inal contours are unremarkable. Osseous structures are intact. CONCLUSION: 1. Minimal basilar atelectasis. Moisés Fraser MD on August 08, 2016 at 11:28 Board Certified Radiologist. This report was verified electronically.
[2016-08-08] MEDS: GABAPENTIN 300 MG CAP PO SCH ×2 (12:58→18:19)
--- NOTE | 2016-08-08 13:02 | HHI.HP ---
[facility] Service [facility] Primary Care Physician Brandan Ferro M.D. Admission Diagnosis intractable right leg pain, need iv hydration Diagnoses: Chief Complaint: Right lower extremity pain Travel History International Travel<30 Days: No Contact w/Intl Traveler <30 Da: No Traveled to Known Affected Are: No History of Present Illness Written by JESUS Ribeiro acting as scribe for [Pricilla] on 08/08/16 at 12 :59. This note was transcribed by elifibPriya HALL. I, Dr. Candi Pleitez personally performed the history, physical exam, and medical decision making; and confirmed the accuracy of the information in the transcribed note. Authenticated by Dr. Candi Pleitze on 08/08/16 at 12:59. 36y/o female with a history of HTN, PAD, and HLD presented to the ED with complaints of pain in her right lower extremity. She has had multiple visits to the ER over the last few months for the same symptoms and have requested pain medication each time. She signed out last admission AMA because no pain medications were offered. She does not follow a pain management physician at this time. She states the pain is constant, throbbing, 10/10 and she is currently out of medication. She feels the pain today is stronger than normal. Dilaudid has been helping. She has not followed up with her vascular surgeon lately. Denies any chest pain, sob, fever or chills. Review of Systems Constitutional: DENIES: Fever, Chills Respiratory: DENIES: Cough, Sputum production, Shortness of breath Cardiovascular: DENIES: Chest pain, Lower Extremity Edema Gastrointestinal: DENIES: Nausea, Vomiting Musculoskeletal: COMPLAINS OF: Joint pain, DENIES: Back pain, Neck pain Integumentary: DENIES: Rash Hematologic/lymphatic: DENIES: Lymphadenopathy Neurologic: DENIES: Headache Past Family Social History Past Medical History HTN PAD HLD Past Surgical History Bilateral lower extremity stents C Section Right partial foot amputation Reported Medications Reported Meds & Active Scripts Active Reported [place] (Hydrocodone-Acetaminophen) 10-325 Mg Tab 1 Tab PO Q6HR PRN Docusate Sodium 100 Mg Cap 100 Mg PO BID Mirtazapine 15 Mg Tab 15 Mg PO HS Nifedipine 20 Mg Cap 30 Mg PO DAILY Metoprolol Tartrate 25 Mg Tab 25 Mg PO BID Gabapentin 600 Mg Tab 600 Mg PO TID Plavix (Clopidogrel Bisulfate) 75 Mg Tab 75 Mg PO DAILY Atorvastatin (Atorvastatin Calcium) 20 Mg Tab 20 Mg PO HS Aspir-81 (Aspirin) 81 Mg Tabdr 1 Tab PO DAILY Allergies: Coded Allergies: No Known Allergies (Unverified , 08/08/16) Active Ordered Medications Current Medications Medications (Trade) Dose Ordered Sig/Haris Route Start Time Stop Time Status Last Admin Sodium Chloride 1,000 ml @ 125 mls/hr Q8H IV 08/08/16 08:30 08/08/16 09:11 (NS 1000 ml Inj) 1,000 ml @ 100 mls/hr Q10H IV 08/08/16 09:34 (NS Flush) 2 ml UNSCH PRN IV FLUSH 08/08/16 09:45 (NS Flush) 2 ml BID IV FLUSH 08/08/16 21:00 (Tylenol) 650 mg Q4H PRN PO 08/08/16 09:45 (Zofran Inj) 4 mg Q6H PRN IVP 08/08/16 09:45 (Lovenox Inj) 40 mg Q24H SQ 08/08/16 10:00 08/08/16 10:24 (Azra-Colace) 1 tab BID PO 08/08/16 21:00 (Milk Of Magnesia Liq) 30 ml Q12H PRN PO 08/08/16 09:45 (Senokot) 17.2 mg Q12H PRN PO 08/08/16 09:45 (Dulcolax Supp) 10 mg DAILY PRN RECTAL 08/08/16 09:45 (Lactulose Liq) 30 ml DAILY PRN PO 08/08/16 09:45 (Ecotrin Ec) 81 mg DAILY PO 08/09/16 09:00 (Lipitor) 20 mg HS PO 08/08/16 21:00 (Plavix) 75 mg DAILY PO 08/09/16 09:00 (Neurontin) 600 mg TID PO 08/08/16 13:00 (Lopressor) 25 mg BID PO 08/08/16 21:00 (Remeron) 15 mg HS PO 08/08/16 21:00 (Procardia Xl) 30 mg DAILY PO 08/09/16 09:00 ([place] 10-325 Mg) 1 tab Q6H PRN PO 08/08/16 11:30 08/08/16 11:31 Family History Patient denies any medical history Social History Tobacco use: A few cigarettes every 3 days, prior 1- 1 1/2 PPD since age 14 Alcohol use: Denies Illicit drug use: Denies Physical Exam Vital Signs Vital Signs Date Time Temp Pulse Resp B/P Pulse Ox O2 Delivery O2 Flow Rate FiO2 08/08/16 12:33 99 21 08/08/16 10:49 97.6 67 18 123/75 99 08/08/16 07:10 69 18 133/83 100 Room Air 08/08/16 05:33 78 18 113/55 96 Room Air 08/08/16 05:09 99 Room Air 08/08/16 05:09 16 08/08/16 01:10 98.4 93 18 194/128 99 Room Air Physical Exam GENERAL: This is a well-nourished, well-developed patient, in apparent pain. SKIN: No rashes, ecchymoses or lesions. Cool and dry. HEAD: Atraumatic. Normocephalic. EYES: Pupils equal round and reactive. Extraocular motions intact. ENT: Nose without bleeding, purulent drainage or septal hematoma. Airway patent. NECK: Trachea midline. No JVD or lymphadenopathy. CARDIOVASCULAR: Regular rate and rhythm without murmurs, gallops, or rubs. RESPIRATORY: Clear to auscultation. Breath sounds equal bilaterally. No wheezes , rales, or rhonchi. GASTROINTESTINAL: Abdomen soft, non-tender, nondistended. No guarding. MUSCULOSKELETAL: Right lower extremity pain. No edema. No calf tenderness. NEUROLOGICAL: Awake and alert. Motor and sensory grossly within normal limits. Normal speech. Laboratory Laboratory Tests Test 08/08/16 08/08/16 08/08/16 03:26 05:10 06:50 White Blood Count 15.9 Red Blood Count 4.74 Hemoglobin 13.8 Hematocrit 41.0 Mean Corpuscular Volume 86.5 Mean Corpuscular Hemoglobin 29.1 Mean Corpuscular Hemoglobin 33.7 Concent Red Cell Distribution Width 16.4 Platelet Count 263 Mean Platelet Volume 9.2 Neutrophils (%) (Auto) 83.0 Lymphocytes (%) (Auto) 11.1 Monocytes (%) (Auto) 5.2 Eosinophils (%) (Auto) 0.1 Basophils (%) (Auto) 0.6 Neutrophils # (Auto) 13.2 Lymphocytes # (Auto) 1.8 Monocytes # (Auto) 0.8 Eosinophils # (Auto) 0.0 Basophils # (Auto) 0.1 CBC Comment DIFF FINAL Differential Comment Prothrombin Time 12.4 Prothromb Time International 1.1 Ratio Activated Partial 23.9 Thromboplast Time Sodium Level 144 Potassium Level 3.5 Chloride Level 112 Carbon Dioxide Level 22.7 Anion Gap 9 Blood Urea Nitrogen 9 Creatinine 0.56 Estimat Glomerular Filtration 147 Rate Random Glucose 98 Calcium Level 8.1 Total Bilirubin 0.4 Aspartate Amino Transf 20 (AST/SGOT) Alanine Aminotransferase 35 (ALT/SGPT) Alkaline Phosphatase 98 Total Protein 8.3 Albumin 3.8 Lactic Acid Level 0.8 Urine Color YELLOW Urine Turbidity HAZY Urine pH 6.0 Urine Specific [place] GREATER THAN 1.050 Urine Protein 30 Urine Glucose (UA) NEG Urine Ketones TRACE Urine Occult Blood TRACE Urine Nitrite NEG Urine Bilirubin NEG Urine Urobilinogen LESS THAN 2.0 Urine Leukocyte Esterase NEG Urine RBC 1 Urine WBC 2 Urine Squamous Epithelial 48 Cells Urine Bacteria MOD Urine Mucus FEW Microscopic Urinalysis Comment CULTURE INDICATED Date/Time Procedure Status Source Growth 08/08/16 06:50 Urine Culture Received Urine Clean Catch Pending 08/08/16 05:10 Aerobic Blood Culture Received Blood Peripheral Pending 08/08/16 05:10 Anaerobic Blood Culture Received Blood Peripheral Pending Result Diagram: 08/08/16 0326 08/08/16 0326 Imaging Last Impressions Abdomen/Pelvis CT 08/08/16 0444 Signed Impressions: Service Date/Time: July 05:54 - CONCLUSION: 1. No obstruction or acute inflammatory changes are demonstrated. 2. 2.7 cm left ovarian cyst. Small, nonspecific free fluid in the pelvic cul-de-sac. 3. Fat containing umbilical and left inguinal hernias. No bowel herniation. 4. Mild bibasilar infiltrate. Ziyad Quintero MD Chest X-Ray 08/08/16 0000 Signed Impressions: Service Date/Time: July 11:05 - CONCLUSION: 1. Minimal basilar atelectasis. Moisés Fraser MD Aorta w/Runoff CTA 08/08/16 0000 Signed Impressions: Service Date/Time: July 05:49 - CONCLUSION: 1. Grossly patent overlapping left iliac stents extending from the distal left common iliac artery to the very distal left externally artery with post endarterectomy changes of the left common femoral artery. 2. Continued occlusion of the right external iliac artery with reconstitution of the common femoral artery to the inguinal ligament. 3. No significant outflow disease bilaterally. 4. Limited evaluation of the runoff vessels due to venous contamination although there is likely diminutive 3 vessel runoff bilaterally. Ramos Hargrove MD Assessment and Plan Problem List: (1) Peripheral arterial disease ICD Code: I73.9 Status: Acute (2) HTN (hypertension) ICD Code: I10 Status: Chronic (3) Tobacco abuse ICD Code: Z72.0 Status: Chronic Assessment and Plan 36y/o female with a history of HTN, PAD, and HLD presented to the ED with complaints of pain in her right lower extremity. Right lower extremity pain related to chronic Peripheral arterial disease Aorta CTA Grossly patent overlapping left iliac stents extending from the distal left common iliac artery to the very distal left externally artery with post endarterectomy changes of the left common femoral artery. Continued occlusion of the right external iliac artery with reconstitution of the common femoral artery to the inguinal ligament. No significant outflow disease bilaterally. Limited evaluation of the runoff vessels due to venous contamination although there is likely diminutive 3 vessel runoff bilaterally. -Pain management with [place] PO -Cont home medications: ASA, Plavix and gabapentin -IVF for dye clearance -Patient needs to FU out patient with vascular surgeon and pain management Leukocytosis, WBC 15.9, no fevers Chest xray shows mild bibasilar infiltrate -Urine culture pending -Cont Rocephin until culture results -Incentive spirometer Q1hr while awake HTN, chronic -Monitor Vitals -Resume home medications Procardia and Lopressor Tobacco abuse, chronic -Encouraged to quit, and to stay away from others who smoke DVT prophylaxis: Lovenox Discussed Condition With Patient, RN and ED physician Chayo Wang Aug 08, 2016 13:02 Candi Pleitez MD Aug 08, 2016 13:22
[2016-08-08] MEDS ORDERED: cefTRIAXone INJ 1,000 MG in SODIUM CHLORIDE 0.9% INJ 100 ML IV SCH (14:00)
[2016-08-08 18:10] LABS: AMPHETAMINE, URINE NEG (NEG); BARBITURATES, URINE NEG (NEG); COCAINE, URINE NEG (NEG)
[2016-08-08] MEDS: oxyCODONE/ACETAMINOPHEN 10 MG/325 MG TAB PO PRN (18:20)
[2016-08-08] MEDS: SODIUM CHLORIDE 0.9% FLUSH 10 ML FLUSH IV FLUSH SCH (20:58)
[2016-08-08] MEDS ORDERED: MIRTAZAPINE 15 MG TAB PO SCH (21:00)
[2016-08-08] MEDS ORDERED: ATORVASTATIN 20 MG TAB PO SCH (21:00)
[2016-08-08] MEDS: DOCUSATE SODIUM 50 MG/SENNA 8.6 MG TAB PO SCH (21:06)
[2016-08-08] MEDS: METOPROLOL TARTRATE 25 MG TAB PO SCH (21:06)
[2016-08-09] MEDS: SODIUM CHLOR 0.9% 1000 ML INJ 1,000 ML IV SCH (00:30)
[2016-08-09] MEDS: oxyCODONE/ACETAMINOPHEN 10 MG/325 MG TAB PO PRN ×2 (01:35→07:25)
[2016-08-09 04:17] VITALS: BP 138/82; PULSE 82; RESP 18; O2SAT 100
[2016-08-09 07:11] LABS: BICARBONATE 23.7 MEQ/L (21.0-32.0); CALCIUM-PROTEIN CORRECTED 7.7 MG/DL (8.5-10.1); POTASSIUM 3.4 MEQ/L (3.5-5.1); TOTAL BILIRUBIN ADULT 0.2 MG/DL (0.2-1.0)
[2016-08-09 07:13] VITALS: BP 152/117; PULSE 77; RESP 16; TEMP 97.7; O2SAT 100
[2016-08-09] MEDS: GABAPENTIN 300 MG CAP PO SCH (07:26)
[2016-08-09] MEDS: METOPROLOL TARTRATE 25 MG TAB PO SCH (07:26)
[2016-08-09] MEDS: SODIUM CHLORIDE 0.9% FLUSH 10 ML FLUSH IV FLUSH SCH (07:27)
[2016-08-09] MEDS: DOCUSATE SODIUM 50 MG/SENNA 8.6 MG TAB PO SCH (07:27)
[2016-08-09] MEDS ORDERED: CLOPIDOGREL 75 MG TAB PO SCH (09:00)
[2016-08-09] MEDS ORDERED: ASPIRIN EC 81 MG TABEC PO SCH (09:00)
[2016-08-09] MEDS ORDERED: NIFEdipine 30 MG SUSTAINED RELEASE TAB PO SCH (09:00)
[2016-08-09] MEDS: ENOXAPARIN SODIUM 40 MG/0.4 ML SYRINGE SQ SCH (09:43)
--- NOTE | 2016-08-09 09:52 | HHI.PR ---
Subjective Remarks Follow up leg pain. Patient states she is ok, states the Percocet helps better than the [place]. Explained the importance of follow up with a pain management doctor for a continuation of regimen. She agrees and verbalizes understanding. Denies any chest pain, sob, fever or chills. Objective Vitals Vital Signs Date Time Temp Pulse Resp B/P Pulse Ox O2 Delivery O2 Flow Rate FiO2 08/09/16 07:13 97.7 77 16 152/117 100 08/09/16 04:17 82 18 138/82 100 08/08/16 23:41 98.7 64 18 137/84 99 08/08/16 19:35 98 08/08/16 19:12 98.6 63 18 136/86 98 08/08/16 15:46 98.8 65 16 113/77 99 08/08/16 12:33 99 21 08/08/16 10:49 97.6 67 18 123/75 99 I/O 08/08/16 08/08/16 08/08/16 08/09/16 08/09/16 08/09/16 07:00 15:00 23:00 07:00 15:00 23:00 Intake Total 1003 ml Balance 1003 ml Intake IV Total 1003 ml Result Diagram: 08/08/16 0326 08/09/16 0626 Objective Remarks GENERAL: SKIN: Warm and dry. EYES: Pupils equal and round. NECK: Trachea midline. No JVD. CARDIOVASCULAR: Regular rate and rhythm. RESPIRATORY: No accessory muscle use. Clear to auscultation. Breath sounds equal bilaterally. GASTROINTESTINAL: Abdomen soft, non-tender, nondistended. MUSCULOSKELETAL: Extremities without clubbing, cyanosis, or edema. No obvious deformities. NEUROLOGICAL: Awake and alert. Motor grossly within normal limits. Normal speech. PSYCHIATRIC: Appropriate mood and affect; insight and judgment normal. Medications and IVs Current Medications Medications (Trade) Dose Ordered Sig/Haris Route Start Time Stop Time Status Last Admin Sodium Chloride 1,000 ml @ 125 mls/hr Q8H IV 08/08/16 08:30 08/09/16 00:30 (NS 1000 ml Inj) 1,000 ml @ 100 mls/hr Q10H IV 08/08/16 09:34 08/08/16 21:09 (NS Flush) 2 ml UNSCH PRN IV FLUSH 08/08/16 09:45 (NS Flush) 2 ml BID IV FLUSH 08/08/16 21:00 08/09/16 07:27 (Tylenol) 650 mg Q4H PRN PO 08/08/16 09:45 (Zofran Inj) 4 mg Q6H PRN IVP 08/08/16 09:45 (Lovenox Inj) 40 mg Q24H SQ 08/08/16 10:00 08/08/16 10:24 (Azra-Colace) 1 tab BID PO 08/08/16 21:00 08/08/16 21:06 (Milk Of Magnesia Liq) 30 ml Q12H PRN PO 08/08/16 09:45 (Senokot) 17.2 mg Q12H PRN PO 08/08/16 09:45 (Dulcolax Supp) 10 mg DAILY PRN RECTAL 08/08/16 09:45 (Lactulose Liq) 30 ml DAILY PRN PO 08/08/16 09:45 (Ecotrin Ec) 81 mg DAILY PO 08/09/16 09:00 08/09/16 07:25 (Lipitor) 20 mg HS PO 08/08/16 21:00 08/08/16 21:07 (Plavix) 75 mg DAILY PO 08/09/16 09:00 08/09/16 07:26 (Neurontin) 600 mg TID PO 08/08/16 13:00 08/09/16 07:26 (Lopressor) 25 mg BID PO 08/08/16 21:00 08/09/16 07:26 (Remeron) 15 mg HS PO 08/08/16 21:00 08/08/16 21:06 Nifedipine 30 mg 30 mg DAILY PO 08/09/16 09:00 08/09/16 07:26 (Rocephin Inj/NS Inj) 100 ml @ 200 mls/hr Q24H IV 08/08/16 14:00 08/08/16 13:57 (Percocet 10-325 Mg) 1 tab Q4H PRN PO 08/08/16 14:45 08/09/16 07:25 Urinary Catheter: No Vascular Central Line Catheter: No A/P Problem List: (1) Peripheral arterial disease ICD Code: I73.9 Status: Acute (2) HTN (hypertension) ICD Code: I10 Status: Chronic (3) Tobacco abuse ICD Code: Z72.0 Status: Chronic Assessment and Plan Right chronic leg pain, related to severe PAD Aorta CTA Grossly patent overlapping left iliac stents extending from the distal left common iliac artery to the very distal left externally artery with post endarterectomy changes of the left common femoral artery. Continued occlusion of the right external iliac artery with reconstitution of the common femoral artery to the inguinal ligament. No significant outflow disease bilaterally. Limited evaluation of the runoff vessels due to venous contamination although there is likely diminutive 3 vessel runoff bilaterally. -Pain management with Percocet PO, patient will be discharged with RX, and instructed to follow up with pain management -Cont home medications: ASA, Plavix and gabapentin -D/C IVF -Patient needs to FU out patient with vascular surgeon and pain management Leukocytosis, WBC 15.9--8.9, no fevers, no dysuria, likely reactive, Resolved Chest xray shows mild bibasilar infiltrate -Urine culture pending, discussed with microbiology at 10:04, Culture reported mixed andreea, and likely contamination -No antibiotics at discharge patient was treated in hospital with Rocephin -Incentive spirometer Q1hr while awake Hypocalcemia/hypokalemia, calcium protein corrected 7.7, potassium 3.4 -PO tums 500mg x1 ordered -PO potassium [id number] ordered HTN, chronic -Monitor Vitals -Cont home medications Procardia and Lopressor Tobacco abuse, chronic -Encouraged to quit, and to stay away from others who smoke DVT prophylaxis: Lovenox 11:39Hrs: Discharge patient to home Condition on discharge: Stable Heart Healthy Diet as tolerated Ad Daya activity Rx written: Percocet 10/325 Q6h PRN #20 tabs Follow-up with primary care physician and pain management in 2-3 days Discussed with patient the importance of follow up with Pain management for continuation of pain medication, and the importance of quieting smoking. Patient verbalizes understanding. Patient is stable for discharge home. Chayo Wang Aug 09, 2016 09:52
[2016-08-09] MEDS ORDERED: OXYC1TAB36 PO (10:12)
--- NOTE | 2016-08-09 10:13 | HHI.DCPOC ---
Discharge Care Plan Diagnosis: (1) Tobacco abuse (2) Peripheral arterial disease (3) Chronic leg pain (4) Leucocytosis (5) HTN (hypertension) Goals to Promote Your Health * To prevent worsening of your condition and complications * To maintain your health at the optimal level Directions to Meet Your Goals Take your medications as prescribed Follow your dietary instruction Follow activity as directed Keep your appointments as scheduled Take your immunizations and boosters as scheduled If your symptoms worsen call your PCP, if no PCP go to Urgent Care Center or Emergency Room Smoking is Dangerous to Your Health. Avoid second hand smoke Call the 24-hour hour crisis hotline for domestic abuse at Chayo Wang Aug 09, 2016 10:13
[2016-08-09] MEDS ORDERED: CALCIUM CARBONATE 500 MG CHEWABLE TAB CHEW ONE (10:30)
[2016-08-09] MEDS ORDERED: POTASSIUM CHLORIDE 20 MEQ CONTROLLED RELEASE TAB PO ONE (10:30)
[2016-08-09 11:05] VITALS: BP 126/75; PULSE 71; RESP 16; TEMP 98.7; O2SAT 99
[2016-08-09 11:23] LABS: HEMATOCRIT 35.8 % (35.0-46.0); MEAN CELL VOLUME 87.2 FL (80.0-100.0); MEAN CORPUSCULAR HEMOGLOBIN 28.8 PG (27.0-34.0); PLATELET COUNT 206 TH/MM3 (150-450); RED BLOOD COUNT 4.11 MIL/MM3 (4.00-5.30); RED CELL DISTRIBUTION WIDTH 16.4 % (11.6-17.2); REVIEW FLAG FINAL; WHITE BLOOD COUNT 8.9 TH/MM3 (4.0-11.0)
== END 2016-08-09 11:59 | disposition home or self-care (01) ==
LOC: NEPE 01:08 → NEDA 09:15 → NEPGCP 10:57 → NEPHCDU 17:25
PROVIDERS: ADMIT Hospitalist; ATTEND Hospitalist
DX: I73.9 Peripheral vascular disease, unspecified (principal); I74.5 Embolism and thrombosis of iliac artery; G89.29 Other chronic pain; Z95.820 Peripheral vascular angioplasty status with implants and grafts; I10 Essential (primary) hypertension; D72.829 Elevated white blood cell count, unspecified; E83.51 Hypocalcemia; E87.6 Hypokalemia; E78.5 Hyperlipidemia, unspecified; F17.200 Nicotine dependence, unspecified, uncomplicated; Z79.01 Long term (current) use of anticoagulants; R82.99 Other abnormal findings in urine
CPT/HCPCS: 71010; 74177; 75635; 80053; 80307; 81001; 83605; 85025; 85027; 85610; 85730; 87040; 87086; 94150; 96372; 96374; 96375; 97162; 99285; G0378; G8987; G8988; J0696; J1170; J1650; J2405; J7030; Q9967